=== PATIENT | female | born 1980 | race Two or more races ===

== ENCOUNTER 2016-10-25 22:15 | Inpatient (IN) | payer BC, OTHER ==
[~2016-10-25] VITALS: Ht 162.6 cm; Wt 61.3 kg
[2016-10-25] MEDS ORDERED: morphine 2 MG INJ IV STA (22:55)
[2016-10-25] MEDS ORDERED: KETOROLAC 30 MG INJ IV STA (22:55)
[2016-10-25] MEDS ORDERED: SOD CHLORIDE 0.9% 1,000 ML IV STA (22:55)
[2016-10-25] MEDS ORDERED: ACETAMINOPHEN 500 MG TAB PO STA (22:55)
[2016-10-25] MEDS ORDERED: ONDANSETRON 4 MG INJ IV STA (22:55)
--- NOTE | 2016-10-25 23:16 | ERD ---
ER Documentation Chief Complaint Date/Time DATE: 10/25/16 TIME: 23:11 Chief Complaint FEVERS WITH BILATERAL FLANK PAIN, RECENTLY DX UTI, NAUSEA HPI 36-year-old female presents in emergency department for complaints of bilateral flank pain fever nausea vomiting for one week now. Patient was diagnosed to have urinary tract infection, is currently on Keflex. Patient started to also even got worse. Patient is complaining of bilateral flank pain throbbing pain 6/ 10 scale, accompanied other symptoms. Patient denies any diarrhea. Patient denies any sick contacts. ROS All systems reviewed and are negative except as per history of present illness. Medications Home Meds Reported Medications [none] Unknown Strength No Conflict Check 10/25/16 Allergies Allergies: Coded Allergies: No Known Allergy (Unverified , 10/25/16) PMhx/Soc Medical and Surgical Hx: pt denies Medical Hx, pt denies Surgical Hx History of Surgery: No Anesthesia Reaction: No Hx Neurological Disorder: No Hx Respiratory Disorders: No Hx Cardiac Disorders: No Hx Psychiatric Problems: No Hx Miscellaneous Medical Probl: Yes (hx of chronic anemia) Hx Alcohol Use: No Hx Substance Use: No Hx Tobacco Use: No Smoking Status: Never smoker FmHx Family History: No coronary disease, No diabetes, No other Physical Exam Vitals Vital Signs Date Time Temp Pulse Resp B/P Pulse Ox O2 Delivery O2 Flow Rate FiO2 10/25/16 22:28 100.0 106 24 130/60 100 Physical Exam GENERAL: The patient is well developed and appropriate for usual state of health, in no apparent distress. CHEST: Clear to auscultation bilaterally. There are no rales, wheezes or rhonchi. HEART: Regular rate and rhythm. No murmurs, clicks, rubs or gallops. No S3 or S4. ABDOMEN: Soft, nontender and nondistended. Good bowel sounds. No rebound or guarding. No gross peritonitis. No gross organomegaly or masses. No Rodriguez sign or McBurney point tenderness. BACK: No midline or flank tenderness. EXTREMITIES: Equal pulses bilaterally. There is no peripheral clubbing, cyanosis or edema. No focal swelling or erythema. Full range of motion. Grossly neurovascularly intact. NEURO: Alert and oriented. Cranial nerves 2-12 intact. Motor strength in all 4 extremities with 5/5 strength. Sensation grossly intact. Normal speech and gait. SKIN: There is no apparent rash or petechia. The skin is warm and dry. HEMATOLOGIC AND LYMPHATIC: There is no evidence of excessive bruising or lymphedema. No gross cervical, axillary, or inguinal lymphadenopathy. Result Diagram: 10/25/16231410/25/162314 Results 24 hrs Laboratory Tests Test 10/25/16 23:03 10/25/16 23:15 Urine Color STRAW Urine Clarity CLEAR Urine pH 6.0 Urine Specific Platter 1.008 Urine Ketones NEGATIVEmg/dL Urine Nitrite NEGATIVEmg/dL Urine Bilirubin NEGATIVEmg/dL Urine Urobilinogen NEGATIVEmg/dL Urine Leukocyte Esterase 1+Adela/ul Urine Microscopic RBC 1/HPF Urine Microscopic WBC 2/HPF Urine Hemoglobin NEGATIVEmg/dL Urine Glucose NEGATIVEmg/dL Urine Total Protein NEGATIVEmg/dl White Blood Count 14.810^3/ul Red Blood Count 4.7710^6/ul Hemoglobin 7.6g/dl Hematocrit 28.0% Mean Corpuscular Volume 58.7fl Mean Corpuscular Hemoglobin 15.9pg Mean Corpuscular Hemoglobin Concent 27.1g/dl Red Cell Distribution Width 24.0% Platelet Count 97845^3/UL Mean Platelet Volume fl Neutrophils % 77.1% Lymphocytes % 13.7% Monocytes % 7.2% Eosinophils % 0.9% Basophils % 0.4% Nucleated Red Blood Cells % 0.0/100WBC Neutrophils # 11.410^3/ul Lymphocytes # 2.010^3/ul Monocytes # 1.110^3/ul Eosinophils # 0.110^3/ul Basophils # 0.110^3/ul Nucleated Red Blood Cells # 0.010^3/ul Sodium Level 143mmol/L Potassium Level 3.7mmol/L Chloride Level 100mmol/L Carbon Dioxide Level 24mmol/L Anion Gap 23 Blood Urea Nitrogen 9mg/dl Creatinine 0.62mg/dl Glucose Level 101mg/dl Calcium Level 9.0mg/dl Total Bilirubin 0.3mg/dl Direct Bilirubin 0.00mg/dl Indirect Bilirubin 0.3mg/dl Aspartate Amino Transf (AST/SGOT) 16IU/L Alanine Aminotransferase (ALT/SGPT) 24IU/L Alkaline Phosphatase 56IU/L Total Protein 8.2g/dl Albumin 4.5g/dl Globulin 3.70g/dl Albumin/Globulin Ratio 1.21 Lipase 86U/L Current Medications Medications (Trade) Dose Ordered Sig/Jocelyn Route PRN Reason Start Time Stop Time Status Last Admin Dose Admin Sodium Chloride (NS) 1,000 ml @ 1,000 mls/hr Q1H STAT IV 10/25/16 22:55 10/25/16 23:54 DC 10/25/16 23:37 Morphine Sulfate (morphine) 2 mg ONCE STAT IV 10/25/16 22:55 10/25/16 22:57 DC 10/25/16 23:37 Ondansetron HCl (Zofran Inj) 4 mg ONCE STAT IV 10/25/16 22:55 10/25/16 22:57 DC 10/25/16 23:36 Acetaminophen (Tylenol Tab) 500 mg ONCE STAT PO 10/25/16 22:55 10/25/16 22:57 DC 10/25/16 23:36 Ketorolac Tromethamine (Toradol) 30 mg ONCE STAT IV 10/25/16 22:55 10/25/16 22:57 DC 10/25/16 23:36 Patient was given medicines for fever control here in the emergency department. After treatment, patient temperature improved and lower. Patient appears well and is hemodynamically stable.Patient was given medication for pain here in emergency department, after treatment, patient verbalized feeling much better. Patient's pain is improved.Patient was given Zofran here in the emergency department. After treatment, patient was able to tolerate po fluids here in the emergency department without any vomiting. There is no signs and symptoms of dehydration. Normal saline IV bolus was given here in emergency department for rehydration, patient tolerated IV fluids. PROCEDURE: CT ABDOMEN/PELVIS WITHOUT CONTRAST CLINICAL INDICATION: 36-year-old female with abdominal pain. TECHNIQUE: The study was performed utilizing a [employer] VCT 64-slice CT scanner. Direct axial sections were obtained through the abdomen and pelvis without the use of intravenous contrast material. Sagittal and coronal reformations were obtained. One or more of the following dose reduction techniques were utilized: automated exposure control, adjustment of the mA and/ or kV according to patient's size or use of iterative reconstruction technique. The images were reviewed on a PACS workstation. CTD/vol = 5.9 mGy; Total Exam DLP = 334.3 mGy-cm. COMPARISON: None. FINDINGS: There is minimal bibasilar subsegmental atelectasis. There is mild respiratory motion artifact limiting evaluation to some extent. There is no evidence for significant pleural effusion. The liver has a normal size and contour without focal areas of abnormal density. No intrahepatic nor extrahepatic biliary ductal dilatation is seen. The gallbladder demonstrates no wall thickening nor pericholecystic fluid. No biliary stones are evident. The pancreas is without areas of abnormal attenuation. The spleen is identified and has a normal size without abnormal density. The adrenal glands are unremarkable. The kidneys are without abnormal density. No hydroureteronephrosis nor nephroureterolithiasis is evident. The urinary bladder contains urine. There is mild retained stool identified within the colon without obstruction. The appendix is visualized and is without abnormal thickening or surrounding inflammatory reaction. The uterus is anteflexed. There is trace pelvic free fluid. The aortoiliac vessels are without aneurysmal dilatation. The osseous structures are intact. IMPRESSION: 1. No CT evidence for obstructive uropathy or renal calculi. 2. Mild retained stool within the colon without obstruction. 3. No CT evidence for appendicitis. 4. Trace pelvic free fluid. .You Girard MD, MD Date Time Electronically viewed and signed by .You Girard MD, MD on 10/25/2016 23:48 .M/ CC: JENNIE ANDERSON NP Procedures/MDM Medical Decision Making: Patient's symptoms was likely is consistent with pyelonephritis, failed outpatient management and treatment, will be admitted for this. Also patient has low hemoglobin, severe anemia which is symptomatic, patient is feeling weak and dizzy,, not bleeding at this time, patient states that she has been feeling weak also. Patient has always had severe iron deficiency. I discussed this case with my attending physician, Dr. Gutierrez, patient needs to be admitted to the hospital for further management and treatment, will facilitate admission to the hospital. Departure Diagnosis: Primary Impression: Pyelonephritis Additional Impression: Symptomatic anemia Condition: Fair JENNIE ANDERSON NP Oct 25, 2016 23:16
[2016-10-25 23:43] LABS: ADD UMIC YES; UR ASCORBIC ACID NEGATIVE (NEGATIVE); UR BILIRUBIN (Dip) NEGATIVE (NEGATIVE); UR BLOOD (Dip) NEGATIVE (NEGATIVE); UR CLARITY CLEAR (CLEAR); UR COLOR STRAW (YELLOW); UR GLUCOSE (Dip) NEGATIVE (NEGATIVE); UR KETONES (Dip) NEGATIVE (NEGATIVE); UR LEUKOCYTE ESTERASE (Dip) 1+ Leu/ul (NEGATIVE); UR NITRITE (Dip) NEGATIVE (NEGATIVE); UR RBC 1 /HPF (0-5); UR SPECIFIC GRAVITY (Dip) 1.008 (1.003-1.030); UR TOTAL PROTEIN (Dip) NEGATIVE (NEGATIVE); UR UROBILINOGEN (Dip) NEGATIVE (NEGATIVE)
[2016-10-25 23:46] LABS: ABNORMAL IP MESSAGE 1; BASOPHIL # 0.1 10^3/ul (0.0-0.1); BASOPHILS % 0.4 % (0.0-2.0); EOSINOPHILS # 0.1 10^3/ul (0.0-0.5); EOSINOPHILS % 0.9 % (0.0-7.0); HEMOGLOBIN 7.6 g/dl (12.0-16.0); LYMPHOCYTES % 13.7 % (15.0-51.0); MEAN CORPUSCULAR HEMOGLOBIN 15.9 pg (29.0-33.0); MEAN CORPUSCULAR HGB CONC 27.1 g/dl (32.0-37.0); MEAN CORPUSCULAR VOLUME 58.7 fl (82.0-101.0); MONOCYTE # 1.1 10^3/ul (0.3-0.9); MONOCYTES % 7.2 % (0.0-11.0); NEUTROPHIL # 11.4 10^3/ul (1.6-7.5); NEUTROPHILS % 77.1 % (39.0-77.0); PLATELET COUNT 256 10^3/UL (140-415); RED BLOOD COUNT 4.77 10^6/ul (4.20-5.40); WHITE BLOOD COUNT 14.8 10^3/ul (4.8-10.8)
[2016-10-25 23:47] LABS: POSITIVE DIFF @See below
--- NOTE | 2016-10-25 23:48 | RADRPT ---
PROCEDURE: CT ABDOMEN/PELVIS WITHOUT CONTRAST CLINICAL INDICATION: 36-year-old female with abdominal pain. TECHNIQUE: The study was performed utilizing a [employer] VCT 64-slice CT scanner. Direct axia l sections were obtained through the abdomen and pelvis without the use of intravenous contrast mate rial. Sagittal and coronal reformations were obtained. One or more of the following dose reduction t echniques were utilized: automated exposure control, adjustment of the mA and/or kV according to pat ient's size or use of iterative reconstruction technique. The images were reviewed on a [facility]. CTD/vol = 5.9 mGy; Total Exam DLP = 334.3 mGy-cm. COMPARISON: None. FINDINGS: There is minimal bibasilar subsegmental atelectasis. There is mild respiratory motion artifact limit ing evaluation to some extent. There is no evidence for significant pleural effusion. The liver has a normal size and contour without focal areas of abnormal density. No intrahepatic nor extrahepatic biliary ductal dilatation is seen. The gallbladder demonstrates no wall thickening nor pericholecys tic fluid. No biliary stones are evident. The pancreas is without areas of abnormal attenuation. Th e spleen is identified and has a normal size without abnormal density. The adrenal glands are unrema rkable. The kidneys are without abnormal density. No hydroureteronephrosis nor nephroureterolithiasi s is evident. The urinary bladder contains urine. There is mild retained stool identified within the colon without obstruction. The appendix is visualized and is without abnormal thickening or surrou nding inflammatory reaction. The uterus is anteflexed. There is trace pelvic free fluid. The aortoiliac vessels are without aneurysmal dilatation. The osseous structures are intact. IMPRESSION: 1. No CT evidence for obstructive uropathy or renal calculi. 2. Mild retained stool within the colon without obstruction. 3. No CT evidence for appendicitis. 4. Trace pelvic free fluid. .You Girard MD, Date Time Electronically viewed and signed by .You Girard MD, MD on 10/25/2016 23:48 .Brodie
[2016-10-26] VITALS (9 sets, daily range): BP systolic 108–126; BP diastolic 57–84; PULSE 77–89; RESP 14–19; TEMP 98; Ht 162.6 cm; Wt 61.3 kg
[2016-10-26 00:07] LABS: ALBUMIN 4.5 g/dl (3.3-4.9); ALBUMIN/GLOBULIN RATIO 1.21; BILIRUBIN,INDIRECT 0.3 mg/dl (0-1.1); BILIRUBIN,TOTAL 0.3 mg/dl (0.2-1.3); CREATININE 0.62 mg/dl (0.44-1.00); POTASSIUM 3.7 mmol/L (3.5-5.1); TOTAL PROTEIN 8.2 g/dl (6.1-8.1)
--- NOTE | 2016-10-26 01:20 | EN ---
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
[2016-10-26] MEDS ORDERED: CEPH500C PO (02:04)
[2016-10-26] MEDS ORDERED: CHOL100062 PO (02:04)
[2016-10-26] MEDS ORDERED: FER325 PO (02:04)
[2016-10-26] MEDS ORDERED: OMEP20CA16 PO (02:04)
[2016-10-26] MEDS ORDERED: MONT10TA24 PO (02:04)
[2016-10-26] MEDS ORDERED: ACETAMINOPHEN 325 MG TAB PO PRN (04:30)
[2016-10-26] MEDS ORDERED: ONDANSETRON 4 MG INJ IV PRN (04:30)
[2016-10-26] MEDS: SOD CHLORIDE 0.9% 1,000 ML IV SCH ×3 (04:39→23:33)
[2016-10-26] MEDS: morphine 4 MG/ML VIAL IV PRN ×2 (04:43→21:57)
[2016-10-26 06:41] LABS: ABNORMAL IP MESSAGE 1; HEMATOCRIT 24.8 % (37.0-47.0); MEAN CORPUSCULAR HEMOGLOBIN 15.5 pg (29.0-33.0); MEAN CORPUSCULAR HGB CONC 26.2 g/dl (32.0-37.0); MEAN CORPUSCULAR VOLUME 59.2 fl (82.0-101.0); PLATELET COUNT 206 10^3/UL (140-415); RED BLOOD COUNT 4.19 10^6/ul (4.20-5.40); RED CELL DISTRIBUTION WIDTH 24.3 % (11.5-14.5); WHITE BLOOD COUNT 10.5 10^3/ul (4.8-10.8)
[2016-10-26 06:47] LABS: POSITIVE DIFF @See below
[2016-10-26 06:49] LABS: HEMOGLOBIN 6.5 g/dl (12.0-16.0)
[2016-10-26 07:15] LABS: CREATININE 0.64 mg/dl (0.44-1.00); MAGNESIUM 2.1 mg/dl (1.7-2.5); PHOSPHORUS 3.8 mg/dl (2.5-4.9); POTASSIUM 3.8 mmol/L (3.5-5.1)
--- NOTE | 2016-10-26 07:48 | HP ---
Date/Time of Note Date/Time of Note DATE: 10/26/16 TIME: 07:39 Assessment/Plan VTE Prophylaxis VTE Prophylaxis Intervention: SCD's Lines/Catheters IV Catheter Type (from [facility]): Peripheral IV Urinary Cath still in place: No Assessment/Plan Assessment/Plan 1. likely pyelonephritis -Patient presenting flank pain and recently diagnosed a UTI is highly suggestive of pyelonephritis. Her urinalysis however only shows 1+ leukocyte esterase with normal WBC and a CT scan is nondiagnostic for pyelonephritis. She will however be placed on IV antibiotic. Will follow up on urine culture results. Will provide pain medication as needed. 2. Microcytic anemia: Patient was history of iron deficiency anemia -Since since I saw the patient, her hemoglobin further dropped to 6.5 from [address] GI consult. Will order pelvic/vaginal ultrasound to evaluate for fibroid. Will check ferritin/iron. She will most likely need to be on IV iron but will await the results. 3. History of asthma: No sign of acute exacerbation 4. Leukocytosis: Likely secondary to pyelonephritis -See #1 HPI/ROS Admit Date/Time Admit Date/Time Oct 26, 2016 at 01:13 Hx of Present Illness This is a 36-year-old female with a history of asthma and iron deficiency anemia who presented to the emergency department complaining of bilateral flank pain. About a week ago she was diagnosed with UTI and has been prescribed cephalexin. She said after she started taking the antibiotic the pain actually has gotten much worse. She also reported subjective fever and nausea but no vomiting. Denied chest pain or shortness of breath. When she presented to the ER she had a temperature of 100. WBC was 15,000. Hemoglobin 7.6 with MCV of 58. CT abdomen pelvis shows mild retained stool otherwise no obstructive uropathy or any other acute findings. Urinalysis shows 1+ leukocyte esterase. PMH/Family/Social Social History Smoking Status: Never smoker Exam/Review of Systems Vital Signs Vitals Vital Signs Date Time Temp Pulse Resp B/P Pulse Ox O2 Delivery O2 Flow Rate FiO2 10/26/16 03:50 98.0 89 18 125/68 98 Room Air Intake and Output 10/25/16 10/25/16 10/26/16 15:00 23:00 07:00 Intake Total 600 ml Output Total 600 ml Balance 0 ml Exam Constitutional: alert, oriented, well developed Head: atraumatic, normocephalic Eyes: EOMI, PERRL Respiratory: clear to auscultation, normal air movement Cardiovascular: nl pulses, regular rate and rhythm Gastrointestinal: other (Flank tenderness), soft Extremities: normal pulses Labs Result Diagram: 10/26/1661010/26/16610 Medications Medications Current Medications Enoxaparin Sodium (Lovenox) 40 mg DAILY SC ; Start 10/26/16 at 09:00 Ondansetron HCl (Zofran Inj) 4 mg Q6H PRN IV NAUSEA AND/OR VOMITING; Start 10/26 at 04:30 Morphine Sulfate 3 mg 3 mg Q4H PRN IV PAIN Last administered on 10/26/16 04:43 ; Admin Dose 3 MG; Start 10/26/16 at 04:30 Cefepime HCl (Maxipime 1gm/50 ml (Pmx)) 50 ml @ 100 mls/hr Q12 IVPB ; Start 10/26/16 at 09:00 Acetaminophen 650 mg 650 mg Q6H PRN PO PAIN AND OR ELEVATED TEMP; Start at 04:30 Sodium Chloride (NS) 1,000 ml @ 100 mls/hr Q10H IV Last administered on 04:39; Admin Dose 100 MLS/HR; Start 10/26/16 at 04:45; Stop 10/27/16 at 04:45 Cholecalciferol (Vitamin D) 5,000 unit DAILY PO ; Start 10/26/16 at 09:00 Ferrous Sulfate (Ferrous Sulfate (Ec)) 325 mg DAILY PO ; Start 10/26/16 at 09:00 Montelukast Sodium (Singulair) 10 mg QHS PO ; Start 10/26/16 at 21:00 JENNI SHARMA MD Oct 26, 2016 07:48
[2016-10-26] MEDS: FERROUS SULFATE (EC) 325 MG TAB PO SCH ×3 (08:44→21:20)
[2016-10-26] MEDS: CHOLECALCIFEROL 1,000 UNIT TAB PO SCH (08:44)
[2016-10-26] MEDS: CEFEPIME 1GM/50 ML (PMX) 50 ML IVPB SCH ×2 (08:44→21:20)
--- NOTE | 2016-10-26 08:56 | RADRPT ---
PROCEDURE: US Pelvis. CLINICAL INDICATION: Anemia. Evaluate fibroids. TECHNIQUE: Multiple sonographic images of the pelvis were obtained utilizing a transabdominal and endovaginal technique. The images were reviewed on a PACS workstation. COMPARISON: CT abdomen pelvis from 10/25/2016. FINDINGS: The uterus is visualized and measures 9.1 x 5.3 x 6.2 cm. The endometrial echo complex is mildly pro minent and measures 16.9 mm. There are multiple fibroids. The largest measures 3.0 x 2.4 x 3.0 cm i n the posterior body of the uterus. There is trace free fluid in the cul-de-sac.. The right ovary h as a normal echotexture and measures 3.4 x 2.3 x 2.8 cm. The left ovary has a normal echotexture an d measures 4.0 x 1.4 x 2.2 cm. There are follicles in both ovaries. There is normal Doppler flow bi laterally. No adnexal masses are noted. IMPRESSION: 1. Heterogeneous appearance of the uterus with multiple fibroids. The largest is in the posterior b eric measuring 3.0 x 2.4 x 3.0 cm. 2. Mildly prominent endometrial canal complex. This could be due to the phase of the menstrual cyc le. 3. Ovaries and adnexa appear unremarkable bilaterally. RPTAT: [facility] Physician Toño Date Time Electronically viewed and signed by Physician Tooñ on 10/26/2016 08:56 /
[2016-10-26] MEDS ORDERED: ENOXAPARIN 40 MG/0.4 ML SYG SC SCH (09:00)
[2016-10-26] MEDS ORDERED: FERROUS SULFATE (EC) 325 MG TAB PO SCH (09:00)
[2016-10-26 10:09] LABS: ANISOCYTOSIS 3+ (0-0); EOSINOPHILS % (M) 3 % (0-7); ERYTHROBLAST% (NRBC) (M) 1 % (0-0); GIANT THROMBO% (M) 2 % (0-0); HYPOCHROMASIA 3+ (0-0); MICROCYTOSIS 3+ (0-0); MONOCYTES % (M) 4 % (0-11); OVALOCYTES 1+ (0-0); PLATELET ESTIMATE NORMAL; POIKILOCYTOSIS 2+ (0-0); POLYCHROMASIA 3+ (0-0)
[2016-10-26 12:18] LABS: IRON 10 ug/dl (35-150)
[2016-10-26 12:27] LABS: TOTAL IRON BINDING CAPACITY 326 ug/dl (241-421)
[2016-10-26] MEDS ORDERED: SOD FERRIC GLUC COMPLX 125 MG in SOD CHLORIDE 0.9% 100 ML IVPB SCH (20:00)
[2016-10-26] MEDS: MONTELUKAST 10 MG TAB PO SCH (21:20)
--- NOTE | 2016-10-27 01:05 | CONS ---
Date/Time of Note Date/Time of Note DATE: 10/27/16 TIME: 00:49 Assessment/Plan Assessment/Plan Chief Complaint/Hosp Course Severe microcytic anemia, possible iron deficiency anemia, cannot rule out thalassemia or other microcytic anemia patient denies any menorrhagia or abnormal uterine bleeding Cannot rule out GI source versus low intake Small fibroids. Asymptomatic. Incidental finding of vaginal yeast infection, wet mount was sent. We will treat with vaginal azole Discussed with the patient needs complete workup for anemia, including GI evaluation Patient reports regular cycles denies any menorrhagia or intermenstrual bleeding , Recommended the patient to be on OCPs versus Depo-Provera for menstrual suppression with iron supplementation in order to improve iron stores Meantime recommended to be evaluated by hematology for workup of anemia as well as GI. Likely need to have fecal stool for blood versus colonoscopy Pelvic ultrasound showed only 2 small fibroid, nonsignificant I discussed with the patient regarding continuous OCP while being worked up for anemia She continues to be on Depo-Provera shot after she discharged from the hospital in the [facility] office and for follow-up Advised to take iron twice a day with stool softener to improve iron store\ With follow-up while in-house Problems: Consultation Date/Type/Reason Admit Date/Time Oct 26, 2016 at 01:13 Type of Consultation: SUPERVISOR YARD consultation Reason for Consultation Severe anemia, fibroid uterus. Rule out SUPERVISOR YARD causes for anemia Hx of Present Illness I was consulted by hospitalist to see if this 36-year-old pleasant female who presented to emergency room with complaint of low back pain and nausea as well as fatigue for the last couple of days. Patient was noted to be severely anemic. Per patient she presented to her primary care physician about 2-3 days ago with complaint of low back pain and nausea and fatigue. She was diagnosed with UTI and severe anemia. She was given cephalexin for treatment of UTI patient reports her low back pain worsen after she started antibiotics. Patient reports low-grade fever as well as some chills. Her reported home temperature was 100. Denies any history of menorrhagia or intermenstrual bleeding or irregular menstrual bleeding. Denies any rectal rise to or black tarry dark stools or pencil thin stool. Reports low meat intake per patient's daughter has been diagnosed with anemia since years ago. Her hemoglobin used to be 9. Patient reports regular cycles every 30 days last about 7 days. The first 3 days are normal flow and then scant flow for 4 more days. Denies any postcoital bleeding or intermenstrual bleeding Ultrasound showed 2 small fibroids with normal bilateral ovaries. Denies any family history of blood problems or thalassemia. Subjective hx not possible: other (Cooperative) Constitutional: other (Low back pain, suprapubic pain) Eyes: no complaints ENT: no complaints Respiratory: no complaints Cardiovascular: no complaints Gastrointestinal: no complaints Genitourinary: no complaints, other (Reports some thick vaginal discharge) Musculoskeletal: no complaints Skin: other (Pale skin) Neurologic: no complaints Endocrine: no complaints Lymphatic: no complaints Psychological: no complaints Immunologic: no complaints Past Medical History [facility] history: 3 SAB x 1 Denies ever having pap smear in the past. Cycles are regular every 30 days last about 7 days. The first 3 days are regular flow and the last 4 days are scant. 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 Arrived to [place] 7 months ago Exam/Review of Systems Vital Signs Vitals Vital Signs Date Time Temp Pulse Resp B/P Pulse Ox O2 Delivery O2 Flow Rate FiO2 10/26/16 21:15 98.0 77 19 122/84 98 Room Air Intake and Output 10/26/16 10/26/16 10/27/16 15:00 23:00 07:00 Intake Total 50 ml 2100 ml Output Total 2000 ml Balance 50 ml 100 ml Exam Constitutional: alert, oriented, well developed Psych: nl mood/affect, no complaints Head: atraumatic, normocephalic Eyes: EOMI, nl conjunctiva, nl lids ENMT: nl external ears & nose, nl lips & teeth, nl nasal mucosa & septum Neck: non-tender, supple Respiratory: clear to auscultation, normal air movement Cardiovascular: nl pulses, regular rate and rhythm Gastrointestinal: nl liver, spleen, other (Suprapubic tenderness, no rebound tenderness, no rigidity no guarding no evidence of acute abdomen), soft, tender Genitourinary - Female: nl adnexae, nl external genitalia (Speculum examination : Brian cheesy white thick vaginal discharge consistent with Amada noted. No cervical motion tenderness: No tenderness or fullness in adnexa. 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, nl mental status Results Result Diagram: 10/26/16 0611 10/26/16 0611 Results 24 hrs Laboratory Tests Test 10/26/16 06:11 White Blood Count 10.5 # Red Blood Count 4.19 L Hemoglobin 6.5 *L Hematocrit 24.8 L Mean Corpuscular Volume 59.2 L Mean Corpuscular Hemoglobin 15.5 L Mean Corpuscular Hemoglobin Concent 26.2 L Red Cell Distribution Width 24.3 H Platelet Count 206 Mean Platelet Volume Neutrophils % Segmented Neutrophils % (Manual) 63 Lymphocytes % Lymphocytes % (Manual) 30 Monocytes % Monocytes % (Manual) 4 Eosinophils % Eosinophils % (Manual) 3 Basophils % Nucleated Red Blood Cells % 1 H Neutrophils # Absolute Lymphocytes (Manual) 3.1 H Lymphocytes # Monocytes # Absolute Monocytes (Manual) 0.4 Eosinophils # Basophils # Nucleated Red Blood Cells # Smudge Cells % 2 H Thrombocytosis 2 H Platelet Estimate NORMAL Polychromasia 3+ Hypochromasia 3+ Poikilocytosis 2+ Anisocytosis 3+ Microcytosis 3+ Ovalocytes 1+ Sodium Level 144 Potassium Level 3.8 Chloride Level 108 Carbon Dioxide Level 22 Anion Gap 18 H Blood Urea Nitrogen 9 Creatinine 0.64 Glucose Level 97 Calcium Level 8.0 L Phosphorus Level 3.8 Magnesium Level 2.1 Iron Level 10 L Total Iron Binding Capacity 326 Percent Iron Saturation 3 L Ferritin 5.7 L Medications Medications Current Medications Ondansetron HCl (Zofran Inj) 4 mg Q6H PRN IV NAUSEA AND/OR VOMITING; Start 10/26 at 04:30 Morphine Sulfate 3 mg 3 mg Q4H PRN IV PAIN Last administered on 10/26/16 21:57 ; Admin Dose 3 MG; Start 10/26/16 at 04:30 Cefepime HCl (Maxipime 1gm/50 ml (Pmx)) 50 ml @ 100 mls/hr Q12 IVPB Last administered on 10/26/16 21:20; Admin Dose 100 MLS/HR; Start 10/26/16 at 09:00 Acetaminophen 650 mg 650 mg Q6H PRN PO PAIN AND OR ELEVATED TEMP Last administered on 10/26/16 12:00; Admin Dose 650 MG; Start 10/26/16 at 04:30 Sodium Chloride (NS) 1,000 ml @ 100 mls/hr Q10H IV Last administered on 23:33; Admin Dose 100 MLS/HR; Start 10/26/16 at 04:45; Stop 10/27/16 at 04:45 Cholecalciferol (Vitamin D) 5,000 unit DAILY PO Last administered on 10/26/16 08:44; Admin Dose 5,000 UNIT; Start 10/26/16 at 09:00 Montelukast Sodium (Singulair) 10 mg QHS PO Last administered on 10/26/16 21:20 ; Admin Dose 10 MG; Start 10/26/16 at 21:00 Ferrous Sulfate (Ferrous Sulfate (Ec)) 325 mg TID PO Last administered on 21:20; Admin Dose 325 MG; Start 10/26/16 at 09:00 Procedures Procedures PROCEDURE: US Pelvis. CLINICAL INDICATION: Anemia. Evaluate fibroids. TECHNIQUE: Multiple sonographic images of the pelvis were obtained utilizing a transabdominal and endovaginal technique. The images were reviewed on a PACS workstation. COMPARISON: CT abdomen pelvis from 10/25/2016. FINDINGS: The uterus is visualized and measures 9.1 x 5.3 x 6.2 cm. The endometrial echo complex is mildly prominent and measures 16.9 mm. There are multiple fibroids. The largest measures 3.0 x 2.4 x 3.0 cm in the posterior body of the uterus. There is trace free fluid in the cul-de-sac.. The right ovary has a normal echotexture and measures 3.4 x 2.3 x 2.8 cm. The left ovary has a normal echotexture and measures 4.0 x 1.4 x 2.2 cm. There are follicles in both ovaries. There is normal Doppler flow bilaterally. No adnexal masses are noted. IMPRESSION: 1. Heterogeneous appearance of the uterus with multiple fibroids. The largest is in the posterior body measuring 3.0 x 2.4 x 3.0 cm. 2. Mildly prominent endometrial canal complex. This could be due to the phase of the menstrual cycle. 3. Ovaries and adnexa appear unremarkable bilaterally. RPTAT: [facility] PROCEDURE: CT ABDOMEN/PELVIS WITHOUT CONTRAST CLINICAL INDICATION: 36-year-old female with abdominal pain. TECHNIQUE: The study was performed utilizing a [employer] VCT 64-slice CT scanner. Direct axial sections were obtained through the abdomen and pelvis without the use of intravenous contrast material. Sagittal and coronal reformations were obtained. One or more of the following dose reduction techniques were utilized: automated exposure control, adjustment of the mA and/ or kV according to patient's size or use of iterative reconstruction technique. The images were reviewed on a PACS workstation. CTD/vol = 5.9 mGy; Total Exam DLP = 334.3 mGy-cm. COMPARISON: None. FINDINGS: There is minimal bibasilar subsegmental atelectasis. There is mild respiratory motion artifact limiting evaluation to some extent. There is no evidence for significant pleural effusion. The liver has a normal size and contour without focal areas of abnormal density. No intrahepatic nor extrahepatic biliary ductal dilatation is seen. The gallbladder demonstrates no wall thickening nor pericholecystic fluid. No biliary stones are evident. The pancreas is without areas of abnormal attenuation. The spleen is identified and has a normal size without abnormal density. The adrenal glands are unremarkable. The kidneys are without abnormal density. No hydroureteronephrosis nor nephroureterolithiasis is evident. The urinary bladder contains urine. There is mild retained stool identified within the colon without obstruction. The appendix is visualized and is without abnormal thickening or surrounding inflammatory reaction. The uterus is anteflexed. There is trace pelvic free fluid. The aortoiliac vessels are without aneurysmal dilatation. The osseous structures are intact. IMPRESSION: 1. No CT evidence for obstructive uropathy or renal calculi. 2. Mild retained stool within the colon without obstruction. 3. No CT evidence for appendicitis. 4. Trace pelvic free fluid. AMANDA OVIEDO MD Oct 27, 2016 01:04
[2016-10-27] MEDS ORDERED: CLOTRIMAZOLE 1% 45 GM VAG CR VAG ONE (01:30)
[2016-10-27 03:10] VITALS: BP 122/77; RESP 18
[2016-10-27 05:34] LABS: RETICULOCYTE COUNT % 2.6 % (0.5-1.5)
[2016-10-27 05:38] LABS: ABNORMAL IP MESSAGE 1; BASOPHIL # 0.1 10^3/ul (0.0-0.1); BASOPHILS % 0.8 % (0.0-2.0); EOSINOPHILS # 0.4 10^3/ul (0.0-0.5); EOSINOPHILS % 4.3 % (0.0-7.0); HEMATOCRIT 31.5 % (37.0-47.0); LYMPHOCYTES # 2.5 10^3/ul (0.8-2.9); LYMPHOCYTES % 29.5 % (15.0-51.0); MEAN CORPUSCULAR HEMOGLOBIN 18.9 pg (29.0-33.0); MEAN CORPUSCULAR HGB CONC 28.6 g/dl (32.0-37.0); MONOCYTE # 0.8 10^3/ul (0.3-0.9); NEUTROPHIL # 4.6 10^3/ul (1.6-7.5); NEUTROPHILS % 54.5 % (39.0-77.0); PLATELET COUNT 215 10^3/UL (140-415); RED BLOOD COUNT 4.77 10^6/ul (4.20-5.40); RED CELL DISTRIBUTION WIDTH 30.7 % (11.5-14.5); WHITE BLOOD COUNT 8.4 10^3/ul (4.8-10.8)
[2016-10-27 05:48] LABS: POSITIVE DIFF @See below
[2016-10-27 06:18] LABS: CREATININE 0.65 mg/dl (0.44-1.00); POTASSIUM 3.7 mmol/L (3.5-5.1)
[2016-10-27 08:00] VITALS: BP 116/73; RESP 18
[2016-10-27] MEDS: FERROUS SULFATE (EC) 325 MG TAB PO SCH ×3 (08:27→21:18)
[2016-10-27] MEDS: CEFEPIME 1GM/50 ML (PMX) 50 ML IVPB SCH ×2 (08:27→21:18)
[2016-10-27] MEDS: CHOLECALCIFEROL 1,000 UNIT TAB PO SCH (08:28)
--- NOTE | 2016-10-27 10:35 | CONS ---
Date/Time of Note Date/Time of Note DATE: 10/27/16 TIME: 10:28 Assessment/Plan Assessment/Plan Chief Complaint/Hosp Course Microcytic anemia with increased RDW in Patient with history of iron deficiency anemia her hemoglobin further dropped to 6.5 from 7.6 on admission. POST PRBC X 2 U pelvic/vaginal ultrasound - Heterogeneous appearance of the uterus with multiple fibroids. The largest is in the posterior body measuring 3.0 x 2.4 x 3.0 cm. ferritin/iron. - VERY LOW START IV IRON COMPLETE ANEMIA W-UP MONITOR BLOOD COUNT CLOSELY PRBC NEEDED OBSERVE FOR BLEEDING AND HEMOLYSIS OBGYN EVAL R/O GIB- GI EVAL- R/O upper GI bleed vs lower GI bleed vs others Leukocytosis: Likely secondary to pyelonephritis likely pyelonephritis Patient presenting flank pain and recently diagnosed a UTI is highly suggestive of pyelonephritis. Her urinalysis however only shows 1+ leukocyte esterase with normal WBC and a CT scan is nondiagnostic for pyelonephritis. She will however be placed on IV antibiotic. Will follow up on urine culture results. Will provide pain medication as needed. History of asthma: No sign of acute exacerbation Problems: Consultation Date/Type/Reason Admit Date/Time Oct 26, 2016 at 01:13 Date of Consultation: Oct 27, 2016 Type of Consultation: hemeonc Reason for Consultation anemia Referring Provider: BARBRA ROBERTS of Present Illness 36-year-old female presents in emergency department for complaints of bilateral flank pain fever nausea vomiting for one week now. Patient was diagnosed to have urinary tract infection, is currently on Keflex. Patient started to also even got worse. Patient is complaining of bilateral flank pain throbbing pain 6/ 10 scale, accompanied other symptoms. Patient denies any diarrhea. Patient denies any sick contacts.her medical w-up and treatment are in progress I was asked to provide hemeonc consult re anemia ROS All systems reviewed and are negative except as per history of present illness. Medications Home Meds Reported Medications [none] Unknown Strength No Conflict Check 10/25/16 Allergies Allergies: Coded Allergies: No Known Allergy (Unverified , 10/25/16) PMhx/Soc Medical and Surgical Hx: pt denies Medical Hx, pt denies Surgical Hx History of Surgery: No Anesthesia Reaction: No Hx Neurological Disorder: No Hx Respiratory Disorders: No Hx Cardiac Disorders: No Hx Psychiatric Problems: No Hx Miscellaneous Medical Probl: Yes (hx of chronic anemia) Hx Alcohol Use: No Hx Substance Use: No Hx Tobacco Use: No Smoking Status: Never smoker FmHx Family History: No coronary disease, No diabetes, No other Constitutional: other (Low back pain, suprapubic pain) Eyes: no complaints ENT: no complaints Respiratory: no complaints Cardiovascular: no complaints Gastrointestinal: no complaints Genitourinary: no complaints, other (Reports some thick vaginal discharge) Musculoskeletal: no complaints Skin: other (Pale skin) Neurologic: no complaints Endocrine: no complaints Lymphatic: no complaints Psychological: nl mood/affect, no complaints Immunologic: no complaints Past Medical History Medical History: other (GERD, chronic anemia) Social History Alcohol Use: none Smoking Status: Unknown if ever smoked Drug Use: none Exam/Review of Systems Vital Signs Vitals Vital Signs Date Time Temp Pulse Resp B/P Pulse Ox O2 Delivery O2 Flow Rate FiO2 10/27/16 08:00 98.1 78 18 116/73 100 10/26/16 21:15 Room Air Intake and Output 10/26/16 10/26/16 10/27/16 15:00 23:00 07:00 Intake Total 50 ml 2500 ml 1410 ml Output Total 2000 ml 2000 ml Balance 50 ml 500 ml -590 ml Exam Physical Exam GENERAL: The patient is well developed and appropriate for usual state of health, in no apparent distress. CHEST: Clear to auscultation bilaterally. There are no rales, wheezes or rhonchi. HEART: Regular rate and rhythm. No murmurs, clicks, rubs or gallops. No S3 or S4. ABDOMEN: Soft, nontender and nondistended. Good bowel sounds. No rebound or guarding. No gross peritonitis. No gross organomegaly or masses. No Rodriguez sign or McBurney point tenderness. BACK: No midline or flank tenderness. EXTREMITIES: Equal pulses bilaterally. There is no peripheral clubbing, cyanosis or edema. No focal swelling or erythema. Full range of motion. Grossly neurovascularly intact. NEURO: Alert and oriented. Cranial nerves 2-12 intact. Motor strength in all 4 extremities with 5/5 strength. Sensation grossly intact. Normal speech and gait. SKIN: There is no apparent rash or petechia. The skin is warm and dry. HEMATOLOGIC AND LYMPHATIC: There is no evidence of excessive bruising or lymphedema. No gross cervical, axillary, or inguinal lymphadenopathy. Results Result Diagram: 10/27/16 0424 10/27/16 0455 Results 24 hrs Laboratory Tests Test 10/27/16 04:24 10/27/16 04:37 10/27/16 04:55 10/27/16 07:12 White Blood Count 8.4 Red Blood Count 4.77 Hemoglobin 9.0 #L Hematocrit 31.5 #L Mean Corpuscular Volume 66.0 L Mean Corpuscular Hemoglobin 18.9 #L Mean Corpuscular Hemoglobin Concent 28.6 L Red Cell Distribution Width 30.7 #H Platelet Count 215 Mean Platelet Volume Neutrophils % 54.5 Lymphocytes % 29.5 Monocytes % 10.0 Eosinophils % 4.3 Basophils % 0.8 Nucleated Red Blood Cells % 0.0 Neutrophils # 4.6 Lymphocytes # 2.5 Monocytes # 0.8 Eosinophils # 0.4 Basophils # 0.1 Nucleated Red Blood Cells # 0.0 Absolute Reticulocyte Count 0.121 H Percent Reticulocyte Count 2.6 H Sodium Level 142 Potassium Level 3.7 Chloride Level 107 Carbon Dioxide Level 23 Anion Gap 16 Blood Urea Nitrogen 7 Creatinine 0.65 Glucose Level 86 Calcium Level 8.0 L Lactate Dehydrogenase 412 Thyroid Stimulating Hormone (TSH) 2.150 Lab Scanned Report BLOOD TRANSFUSION Medications Medications Current Medications Ondansetron HCl (Zofran Inj) 4 mg Q6H PRN IV NAUSEA AND/OR VOMITING; Start 10/26 at 04:30 Morphine Sulfate 3 mg 3 mg Q4H PRN IV PAIN Last administered on 10/26/16 21:57 ; Admin Dose 3 MG; Start 10/26/16 at 04:30 Cefepime HCl (Maxipime 1gm/50 ml (Pmx)) 50 ml @ 100 mls/hr Q12 IVPB Last administered on 10/27/16 08:27; Admin Dose 100 MLS/HR; Start 10/26/16 at 09:00 Acetaminophen (Tylenol Tab) 650 mg Q6H PRN PO PAIN AND OR ELEVATED TEMP Last administered on 10/26/16 12:00; Admin Dose 650 MG; Start 10/26/16 at 04:30 Cholecalciferol (Vitamin D) 5,000 unit DAILY PO Last administered on 10/27/16 08:28; Admin Dose 5,000 UNIT; Start 10/26/16 at 09:00 Montelukast Sodium (Singulair) 10 mg QHS PO Last administered on 10/26/16 21:20 ; Admin Dose 10 MG; Start 10/26/16 at 21:00 Ferrous Sulfate 325 mg 325 mg TID PO Last administered on 10/27/16 08:27; Admin Dose 325 MG; Start 10/26/16 at 09:00 Ferric Sodium Gluconate Complex/ Sodium Chloride (Ferrlecit/NS) 110 ml @ 100 mls/hr ONCE ONCE IVPB ; Start 10/27/16 at 11:00; Stop 10/27/16 at 12:05 Procedures Procedures [place] [address] Radiology Main Line: [phone] DIAGNOSTIC IMAGING REPORT Patient: BRITTANY RITCHIE : 1980 Age: 36 Sex: F MR #: [id number] DOS: 10/26/16 0000 Ordering MD: JENNI SHARMA [place] [facility] [place] [facility] PROCEDURE: US Pelvis. CLINICAL INDICATION: Anemia. Evaluate fibroids. TECHNIQUE: Multiple sonographic images of the pelvis were obtained utilizing a transabdominal and endovaginal technique. The images were reviewed on a PACS workstation. COMPARISON: CT abdomen pelvis from 10/25/2016. FINDINGS: The uterus is visualized and measures 9.1 x 5.3 x 6.2 cm. The endometrial echo complex is mildly prominent and measures 16.9 mm. There are multiple fibroids. The largest measures 3.0 x 2.4 x 3.0 cm in the posterior body of the uterus. There is trace free fluid in the cul-de-sac.. The right ovary has a normal echotexture and measures 3.4 x 2.3 x 2.8 cm. The left ovary has a normal echotexture and measures 4.0 x 1.4 x 2.2 cm. There are follicles in both ovaries. There is normal Doppler flow bilaterally. No adnexal masses are noted. IMPRESSION: 1. Heterogeneous appearance of the uterus with multiple fibroids. The largest is in the posterior body measuring 3.0 x 2.4 x 3.0 cm. 2. Mildly prominent endometrial canal complex. This could be due to the phase of the menstrual cycle. 3. Ovaries and adnexa appear unremarkable bilaterally. RPTAT: [facility] Ranjeet Burton Physician Date Time Electronically viewed and signed by Ranjeet Burton Physician on 10/26/2016 08: 56 JH/ CC: JENNI SHARMA MD [place] [address] Radiology Main Line: [phone] DIAGNOSTIC IMAGING REPORT Patient: BRITTANY RITCHIE : 1980 Age: 36 Sex: F MR #: [id number] DOS: 10/25/16 2255 Ordering MD: JENNIE ANDERSON NP Location: [facility] Room/Bed: PROCEDURE: CT ABDOMEN/PELVIS WITHOUT CONTRAST CLINICAL INDICATION: 36-year-old female with abdominal pain. TECHNIQUE: The study was performed utilizing a [employer] VCT 64-slice CT scanner. Direct axial sections were obtained through the abdomen and pelvis without the use of intravenous contrast material. Sagittal and coronal reformations were obtained. One or more of the following dose reduction techniques were utilized: automated exposure control, adjustment of the mA and/ or kV according to patient's size or use of iterative reconstruction technique. The images were reviewed on a PACS workstation. CTD/vol = 5.9 mGy; Total Exam DLP = 334.3 mGy-cm. COMPARISON: None. FINDINGS: There is minimal bibasilar subsegmental atelectasis. There is mild respiratory motion artifact limiting evaluation to some extent. There is no evidence for significant pleural effusion. The liver has a normal size and contour without focal areas of abnormal density. No intrahepatic nor extrahepatic biliary ductal dilatation is seen. The gallbladder demonstrates no wall thickening nor pericholecystic fluid. No biliary stones are evident. The pancreas is without areas of abnormal attenuation. The spleen is identified and has a normal size without abnormal density. The adrenal glands are unremarkable. The kidneys are without abnormal density. No hydroureteronephrosis nor nephroureterolithiasis is evident. The urinary bladder contains urine. There is mild retained stool identified within the colon without obstruction. The appendix is visualized and is without abnormal thickening or surrounding inflammatory reaction. The uterus is anteflexed. There is trace pelvic free fluid. The aortoiliac vessels are without aneurysmal dilatation. The osseous structures are intact. IMPRESSION: 1. No CT evidence for obstructive uropathy or renal calculi. 2. Mild retained stool within the colon without obstruction. 3. No CT evidence for appendicitis. 4. Trace pelvic free fluid. .You Girard MD, MD Date Time Electronically viewed and signed by .You Girard MD, MD on 10/25/2016 23:48 .M/ CC: JENNIE ANDERSON NP, VERA M MD Oct 27, 2016 10:35
[2016-10-27 10:39] LABS: ANISOCYTOSIS 3+ (0-0); BASOPHILS % (M) 3 % (0-2); EOSINOPHILS % (M) 1 % (0-7); HYPOCHROMASIA 2+ (0-0); MICROCYTOSIS 3+ (0-0); MONOCYTES % (M) 4 % (0-11); PLATELET ESTIMATE NORMAL; POIKILOCYTOSIS 2+ (0-0); POLYCHROMASIA 3+ (0-0)
[2016-10-27] MEDS ORDERED: SOD FERRIC GLUC COMPLX 125 MG in SOD CHLORIDE 0.9% 100 ML IVPB ONE (11:00)
[2016-10-27 13:16] LABS: CANCER ANTIGEN 125 6.4 U/ml (0.0-35.0)
[2016-10-27 13:17] LABS: CARCINOEMBRYONIC ANTIGEN < 0.3 ng/ml (0.0-5.0)
[2016-10-27 14:00] VITALS: BP 119/80; RESP 19
--- NOTE | 2016-10-27 14:30 | PN ---
Date/Time of Note Date/Time of Note DATE: 10/27/16 TIME: 14:21 Assessment/Plan VTE Prophylaxis VTE Prophylaxis Intervention: SCD's Lines/Catheters IV Catheter Type (from Nrs): Peripheral IV Urinary Cath still in place: No Assessment/Plan Chief Complaint/Hosp Course 1. Microcytic anemia 2/2 Iron deficiency -Anemia w/u, [place] [facility] consult appreciated, no reported Hx of sig vaginal bleed, no reports of melena but have obtained a GI consult, Hem consult appreciated -s/p 2 units of PRBC's,cont Ferrlecit 2. Flank pain- no e/p of Pyelo, likely MS in nature -UA ans UCx neg, DC Abx -CT Abd/pelvis shows no sig findings 3. Leukocytosis-resolved PPX: SCD's Problems: Subjective 24 Hr Interval Summary Musculoskeletal: back pain Exam/Review of Systems Vital Signs Vitals Vital Signs Date Time Temp Pulse Resp B/P Pulse Ox O2 Delivery O2 Flow Rate FiO2 10/27/16 08:00 98.1 78 18 116/73 100 10/26/16 21:15 Room Air Intake and Output 10/26/16 10/26/16 10/27/16 15:00 23:00 07:00 Intake Total 50 ml 2500 ml 1410 ml Output Total 2000 ml 2000 ml Balance 50 ml 500 ml -590 ml Exam Constitutional: alert Respiratory: clear to auscultation Cardiovascular: regular rate and rhythm Gastrointestinal: soft, No distended Musculoskeletal: nl extremities to inspection Results Result Diagram: 10/27/16 0424 10/27/16 0455 Results 24 hrs Laboratory Tests Test 10/27/16 04:24 10/27/16 04:37 10/27/16 04:53 10/27/16 04:55 White Blood Count 8.4 Red Blood Count 4.77 Hemoglobin 9.0 #L Hematocrit 31.5 #L Mean Corpuscular Volume 66.0 L Mean Corpuscular Hemoglobin 18.9 #L Mean Corpuscular Hemoglobin Concent 28.6 L Red Cell Distribution Width 30.7 #H Platelet Count 215 Mean Platelet Volume Neutrophils % 54.5 Segmented Neutrophils % (Manual) 46 Band Neutrophils % (Manual) 1 Lymphocytes % 29.5 Lymphocytes % (Manual) 46 Monocytes % 10.0 Monocytes % (Manual) 4 Eosinophils % 4.3 Eosinophils % (Manual) 1 Basophils % 0.8 Basophils % (Manual) 3 H Nucleated Red Blood Cells % 0.0 Neutrophils # 4.6 Neutrophils # (Manual) 3.9 Band Neutrophils # 0.0 Absolute Lymphocytes (Manual) 3.8 H Lymphocytes # 2.5 Monocytes # 0.8 Absolute Monocytes (Manual) 0.3 Eosinophils # 0.4 Basophils # 0.1 Basophils # (Manual) 0.2 H Nucleated Red Blood Cells # 0.0 Smudge Cells % 3 H Platelet Estimate NORMAL Polychromasia 3+ Hypochromasia 2+ Poikilocytosis 2+ Anisocytosis 3+ Microcytosis 3+ Absolute Reticulocyte Count 0.121 H Percent Reticulocyte Count 2.6 H Erythrocyte Sedimentation Rate 5 Carcinoembryonic Antigen < 0.3 CA 125 Antigen 6.4 Sodium Level 142 Potassium Level 3.7 Chloride Level 107 Carbon Dioxide Level 23 Anion Gap 16 Blood Urea Nitrogen 7 Creatinine 0.65 Glucose Level 86 Calcium Level 8.0 L Lactate Dehydrogenase 412 Thyroid Stimulating Hormone (TSH) 2.150 Test 10/27/16 07:12 Lab Scanned Report BLOOD TRANSFUSION Medications Medications Current Medications Ondansetron HCl (Zofran Inj) 4 mg Q6H PRN IV NAUSEA AND/OR VOMITING; Start 10/26 at 04:30 Morphine Sulfate 3 mg 3 mg Q4H PRN IV PAIN Last administered on 10/26/16 21:57 ; Admin Dose 3 MG; Start 10/26/16 at 04:30 Cefepime HCl (Maxipime 1gm/50 ml (Pmx)) 50 ml @ 100 mls/hr Q12 IVPB Last administered on 10/27/16 08:27; Admin Dose 100 MLS/HR; Start 10/26/16 at 09:00 Acetaminophen (Tylenol Tab) 650 mg Q6H PRN PO PAIN AND OR ELEVATED TEMP Last administered on 10/26/16 12:00; Admin Dose 650 MG; Start 10/26/16 at 04:30 Cholecalciferol (Vitamin D) 5,000 unit DAILY PO Last administered on 10/27/16 08:28; Admin Dose 5,000 UNIT; Start 10/26/16 at 09:00 Montelukast Sodium (Singulair) 10 mg QHS PO Last administered on 10/26/16 21:20 ; Admin Dose 10 MG; Start 10/26/16 at 21:00 Ferrous Sulfate 325 mg 325 mg TID PO Last administered on 10/27/16t 12:58; Admin Dose 325 MG; Start 10/26/16 at 09:00 Ferric Sodium Gluconate Complex/ Sodium Chloride (Ferrlecit/NS) 110 ml @ 110 mls/hr Q24H IVPB ; Start 10/28/16 at 11:00; Stop 11/02/16 at 11:59 BARBRA ROBERTS Oct 27, 2016 14:30
--- NOTE | 2016-10-27 15:00 | CONS ---
Date/Time of Note Date/Time of Note DATE: 10/27/16 TIME: 14:47 Assessment/Plan Assessment/Plan Additional Assessment/Plan Assessment * Anemia R/O upper GI bleed vs lower GI bleed vs others Iron deficiency anemia * Flank pain Plan * EGD tomorrow risks and benefit explained to patient and agreed with the planned procedure * monitor hemoglobin and hematocrit daily and transfuse per protocol * Pantoprazole 40 mg BID * further orders will depend on clinical course Consultation Date/Type/Reason Admit Date/Time Oct 26, 2016 at 01:13 Date of Consultation: Oct 27, 2016 Type of Consultation: gastroenterology Reason for Consultation anemia Referring Provider: BARBRA ROBERTS Hx of Present Illness 36 year old female with past medical history of iron deficiency anemia and asthma presented in the emergency room complaining of bilateral flank pain.present condition started 1 week ago ,diagnosed as having UTI and given Cephalexin which afforded no relief.Patient claimed pain became worse hence consult .She denies any episode of vomiting,hematemesis,,hematochezia,but claims to be noticing dark colored stool.She has been taking iron preparation for long time.Ct scan abdomen . No CT evidence for obstructive uropathy or renal calculi. Mild retained stool within the colon without obstruction. No CT evidence for appendicitis.. Trace pelvic free fluid..Hemoglobin revealed anemia 7.5 dropped to 6.5 the following day hence blood transfusion started.Present hemoglobin is 9.0.Patient denies any evidence hematemesis, hematochezia nor abdominal pain Constitutional: other (Low back pain, suprapubic pain) Eyes: no complaints ENT: no complaints Respiratory: no complaints Cardiovascular: no complaints Gastrointestinal: no complaints Genitourinary: no complaints, other (Reports some thick vaginal discharge) Musculoskeletal: back pain Skin: other (Pale skin) Neurologic: no complaints Endocrine: no complaints Lymphatic: no complaints Psychological: nl mood/affect, no complaints Immunologic: no complaints Past Medical History Medical History: other (GERD, chronic anemia) Past Surgical History Past Surgical Hx: no surgical history Family History Significant Family History: no pertinent family hx Social History Alcohol Use: none Smoking Status: Unknown if ever smoked Drug Use: none Exam/Review of Systems Vital Signs Vitals Vital Signs Date Time Temp Pulse Resp B/P Pulse Ox O2 Delivery O2 Flow Rate FiO2 10/27/16 08:00 98.1 78 18 116/73 100 10/26/16 21:15 Room Air Intake and Output 10/26/16 10/26/16 10/27/16 15:00 23:00 07:00 Intake Total 50 ml 2500 ml 1410 ml Output Total 2000 ml 2000 ml Balance 50 ml 500 ml -590 ml Exam Constitutional: alert, oriented, well developed Psych: nl mood/affect, no complaints Head: atraumatic, normocephalic Eyes: EOMI, PERRL, nl conjunctiva, nl lids, nl sclera ENMT: nl lips & teeth, nl nasal mucosa & septum Neck: non-tender, supple Respiratory: clear to auscultation, normal air movement Cardiovascular: nl pulses, regular rate and rhythm Gastrointestinal: nl liver, spleen, non-tender, soft Musculoskeletal: nl extremities to inspection, nl gait and stance Extremities: normal pulses Neurological: nl mental status, nl speech, nl strength Skin: nl turgor, No rash or lesions Lymph: nl lymph nodes Results Result Diagram: 10/27/16 0424 10/27/16 0455 Results 24 hrs Laboratory Tests Test 10/27/16 04:24 10/27/16 04:37 10/27/16 04:53 10/27/16 04:55 White Blood Count 8.4 Red Blood Count 4.77 Hemoglobin 9.0 #L Hematocrit 31.5 #L Mean Corpuscular Volume 66.0 L Mean Corpuscular Hemoglobin 18.9 #L Mean Corpuscular Hemoglobin Concent 28.6 L Red Cell Distribution Width 30.7 #H Platelet Count 215 Mean Platelet Volume Neutrophils % 54.5 Segmented Neutrophils % (Manual) 46 Band Neutrophils % (Manual) 1 Lymphocytes % 29.5 Lymphocytes % (Manual) 46 Monocytes % 10.0 Monocytes % (Manual) 4 Eosinophils % 4.3 Eosinophils % (Manual) 1 Basophils % 0.8 Basophils % (Manual) 3 H Nucleated Red Blood Cells % 0.0 Neutrophils # 4.6 Neutrophils # (Manual) 3.9 Band Neutrophils # 0.0 Absolute Lymphocytes (Manual) 3.8 H Lymphocytes # 2.5 Monocytes # 0.8 Absolute Monocytes (Manual) 0.3 Eosinophils # 0.4 Basophils # 0.1 Basophils # (Manual) 0.2 H Nucleated Red Blood Cells # 0.0 Smudge Cells % 3 H Platelet Estimate NORMAL Polychromasia 3+ Hypochromasia 2+ Poikilocytosis 2+ Anisocytosis 3+ Microcytosis 3+ Absolute Reticulocyte Count 0.121 H Percent Reticulocyte Count 2.6 H Erythrocyte Sedimentation Rate 5 Carcinoembryonic Antigen < 0.3 CA 125 Antigen 6.4 Sodium Level 142 Potassium Level 3.7 Chloride Level 107 Carbon Dioxide Level 23 Anion Gap 16 Blood Urea Nitrogen 7 Creatinine 0.65 Glucose Level 86 Calcium Level 8.0 L Lactate Dehydrogenase 412 Thyroid Stimulating Hormone (TSH) 2.150 Test 10/27/16 07:12 Lab Scanned Report BLOOD TRANSFUSION Medications Medications Current Medications Ondansetron HCl (Zofran Inj) 4 mg Q6H PRN IV NAUSEA AND/OR VOMITING; Start 10/26 at 04:30 Morphine Sulfate 3 mg 3 mg Q4H PRN IV PAIN Last administered on 10/26/16 21:57 ; Admin Dose 3 MG; Start 10/26/16 at 04:30 Cefepime HCl (Maxipime 1gm/50 ml (Pmx)) 50 ml @ 100 mls/hr Q12 IVPB Last administered on 10/27/16 08:27; Admin Dose 100 MLS/HR; Start 10/26/16 at 09:00 Acetaminophen (Tylenol Tab) 650 mg Q6H PRN PO PAIN AND OR ELEVATED TEMP Last administered on 10/26/16 12:00; Admin Dose 650 MG; Start 10/26/16 at 04:30 Cholecalciferol (Vitamin D) 5,000 unit DAILY PO Last administered on 10/27/16 08:28; Admin Dose 5,000 UNIT; Start 10/26/16 at 09:00 Montelukast Sodium (Singulair) 10 mg QHS PO Last administered on 10/26/16 21:20 ; Admin Dose 10 MG; Start 10/26/16 at 21:00 Ferrous Sulfate 325 mg 325 mg TID PO Last administered on 10/27/16 12:58; Admin Dose 325 MG; Start 10/26/16 at 09:00 Ferric Sodium Gluconate Complex/ Sodium Chloride (Ferrlecit/NS) 110 ml @ 110 mls/hr Q24H IVPB ; Start 10/28/16 at 11:00; Stop 11/02/16 at 11:59 ROMY BARONE MD Oct 27, 2016 14:59
[2016-10-27 15:44] LABS: URIC ACID 4.1 mg/dl (3.1-7.9)
[2016-10-27 16:16] LABS: THYROID STIMULATING HORMONE 2.01 MIU/L (0.465-4.680)
[2016-10-27 16:51] LABS: FOLATE 13.8 ng/ml (2.8-20.0)
--- NOTE | 2016-10-27 17:27 | HP ---
Date/Time of Note Date/Time of Note DATE: 10/27/16 TIME: 16:48 Assessment/Plan VTE Prophylaxis VTE Prophylaxis Intervention: contraindicated Lines/Catheters Urinary Cath still in place: No HPI/ROS Admit Date/Time Admit Date/Time October 27, 2016 Hospital consult Hx of Present Illness This patient is a 36 years old 4 para 3 who came to the clinic complaining of fatigue nausea and back pain for few days. She had some workup done in the emergency room due to her anemia in reviewing her past medical history she had 3 spontaneous vaginal delivery she has a history of urinary tract infection as well as a severe anemia in fact she was placed on iron and control pill as a part of her treatment for her anemia about 8 years ago which she did not continue. Recently for the treatment of her urinary tract infection she was placed Keflex which she is stopped couple of days but are complaining of low back pain and fatigue continue she was having a low-grade fever with temperature 100.1. In reviewing her gynecological history she did not have menometrorrhagia amount of blood flow during. Was on average no intermenstrual bleeding. In an ultrasound two small fibroid nodule which were not submucosal was reported in the emergency room. On pelvic examination which was performed in emergency room the uterus was not enlarged and adnexa is were normal size Today on examination she is well-developed well-nourished -[place] lady with some degree of anemia. She already received 2 units of packed cell and is being worked up by any other causal anemia. I explained to her that although it does not appears that 2 small fibroid or her menstrual period to the source of her anemia she can start using hormone containing IUD or injection of progesterone as a means of reducing the blood flow or stopping the altogether. If the workup does not show any other reason for anemia gynecological [place] she can still have endometrial ablation on in the worse case scenario to have a hysterectomy. Laboratory Tests Test 10/27/16 04:24 10/27/16 04:37 10/27/16 04:53 10/27/16 04:55 White Blood Count 8.410^3/ul Red Blood Count 4.7710^6/ul Hemoglobin 9.0g/dl Hematocrit 31.5% Mean Corpuscular Volume 66.0fl Mean Corpuscular Hemoglobin 18.9pg Mean Corpuscular Hemoglobin Concent 28.6g/dl Red Cell Distribution Width 30.7% Platelet Count 87009^3/UL Mean Platelet Volume fl Neutrophils % 54.5% Segmented Neutrophils % (Manual) 46% Band Neutrophils % (Manual) 1% Lymphocytes % 29.5% Lymphocytes % (Manual) 46% Monocytes % 10.0% Monocytes % (Manual) 4% Eosinophils % 4.3% Eosinophils % (Manual) 1% Basophils % 0.8% Basophils % (Manual) 3% Nucleated Red Blood Cells % 0.0/100WBC Neutrophils # 4.610^3/ul Neutrophils # (Manual) 3.910^3/ul Band Neutrophils # 0.010^3/ul Absolute Lymphocytes (Manual) 3.810^3/ul Lymphocytes # 2.510^3/ul Monocytes # 0.810^3/ul Absolute Monocytes (Manual) 0.310^3/ul Eosinophils # 0.410^3/ul Basophils # 0.110^3/ul Basophils # (Manual) 0.210^3/ul Nucleated Red Blood Cells # 0.010^3/ul Smudge Cells % 3% Platelet Estimate NORMAL Polychromasia 3+ Hypochromasia 2+ Poikilocytosis 2+ Anisocytosis 3+ Microcytosis 3+ Absolute Reticulocyte Count 0.121X10^6 Percent Reticulocyte Count 2.6% Erythrocyte Sedimentation Rate 5mm/Hr Uric Acid 4.1mg/dl Carcinoembryonic Antigen < 0.3ng/ml CA 125 Antigen 6.4U/ml Vitamin B12 Level 307pg/ml Folate 13.8ng/ml Thyroid Stimulating Hormone (TSH) 2.010MIU/L 2.150MIU/L Sodium Level 142mmol/L Potassium Level 3.7mmol/L Chloride Level 107mmol/L Carbon Dioxide Level 23mmol/L Anion Gap 16 Blood Urea Nitrogen 7mg/dl Creatinine 0.65mg/dl Glucose Level 86mg/dl Calcium Level 8.0mg/dl Lactate Dehydrogenase 412IU/L Test 10/27/16 07:12 Lab Scanned Report BLOOD [id number] Current Medications Medications (Trade) Dose Ordered Sig/Jocelyn Route PRN Reason Start Time Stop Time Status Last Admin Dose Admin Sodium Chloride (NS) 1,000 ml @ 1,000 mls/hr Q1H STAT IV 10/25/16 22:55 10/25/16 23:54 DC 10/25/16 23:37 1,000 MLS/HR Morphine Sulfate (morphine) 2 mg ONCE STAT IV 10/25/16 22:55 10/25/16 22:57 DC 10/25/16 23:37 2 MG Ondansetron HCl (Zofran Inj) 4 mg ONCE STAT IV 10/25/16 22:55 10/25/16 22:57 DC 10/25/16 23:36 4 MG Acetaminophen (Tylenol Tab) 500 mg ONCE STAT PO 10/25/16 22:55 10/25/16 22:57 DC 10/25/16 23:36 500 MG Ketorolac Tromethamine (Toradol) 30 mg ONCE STAT IV 10/25/16 22:55 10/25/16 22:57 DC 10/25/16 23:36 30 MG Enoxaparin Sodium (Lovenox) 40 mg DAILY SC 10/26/16 09:00 10/26/16 09:00 DC Ondansetron HCl (Zofran Inj) 4 mg Q6H PRN IV NAUSEA AND/OR VOMITING 10/26/16 04:30 Morphine Sulfate 3 mg 3 mg Q4H PRN IV PAIN 10/26/16 04:30 10/26/16 21:57 3 MG Cefepime HCl (Maxipime 1gm/50 ml (Pmx)) 50 ml @ 100 mls/hr Q12 IVPB 10/26/16 09:00 10/27/16 08:27 100 MLS/HR Acetaminophen 650 mg 650 mg Q6H PRN PO PAIN AND OR ELEVATED TEMP 10/26/16 04:30 10/26/16 12:00 650 MG Sodium Chloride (NS) 1,000 ml @ 100 mls/hr Q10H IV 10/26/16 04:45 10/27/16 04:45 DC 10/26/16 23:33 100 MLS/HR Cholecalciferol (Vitamin D) 5,000 unit DAILY PO 10/26/16 09:00 10/27/16 08:28 5,000 UNIT Ferrous Sulfate (Ferrous Sulfate (Ec)) 325 mg DAILY PO 10/26/16 09:00 10/26/16 09:00 DC Montelukast Sodium (Singulair) 10 mg QHS PO 10/26/16 21:00 10/26/16 21:20 10 MG Ferrous Sulfate 325 mg 325 mg TID PO 10/26/16 09:00 10/27/16 12:58 325 MG Ferric Sodium Gluconate Complex/ Sodium Chloride (Ferrlecit/NS) 110 ml @ 100 mls/hr ONCE@20 IVPB 10/26/16 20:00 10/26/16 21:05 DC 10/26/16 22:01 100 MLS/HR Clotrimazole 1 applic 1 applic ONCE ONCE VAG 10/27/16 01:30 10/27/16 01:31 DC 10/27/16 02:39 1 APPLIC Ferric Sodium Gluconate Complex 125 mg/Sodium Chloride 110 ml @ 100 mls/hr ONCE ONCE IVPB 10/27/16 11:00 10/27/16 12:05 DC 10/27/16 10:57 100 MLS/HR Ferric Sodium Gluconate Complex/ Sodium Chloride (Ferrlecit/NS) 110 ml @ 110 mls/hr Q24H IVPB 10/28/16 11:00 11/02/16 11:59 ROS Constitutional: chills, diaphoresis, disoriented, fatigue, febrile, improved, nausea, no complaints, other, poor po, weight change Eyes: discharge, no complaints, other (Eyelid is pale. Thyroid gland is normal ), pain, redness, visual change ENT: bleeding, congestion, discharge, dysphagia, no complaints, other, pain, sore throat Respiratory: no complaints, other (Lungs are clear) Cardiovascular: no complaints, other (No heart murmur), No chest pain, No edema, No lightheadedness, No orthopenea, No palpitations, No paroxysmal nocturnal dyspnea Gastrointestinal: no complaints, other (No hepatomegaly or splenomegaly no CVA tenderness), No blood, No constipation, No decreased appetite, No diarrhea, No flatus, No nausea, No pain, No passing stool, No vomiting Genitourinary: no complaints, other (On pelvic exam normal size uterus and adnexa as was reported), No bleeding, No discharge, No dysuria, No flank pain, No hematuria Musculoskeletal: back pain, No bone/joint pain, No neck pain, No no complaints, No other, No restricted range of motion, No swelling Skin: other (Pale skin), No bruising, No erythema, No laceration, No no complaints, No pruritis, No rash, No skin lesions Neurologic: no complaints, No confusion, No dizziness, No focal-weakness, No headache, No other, No seizure, No syncope Lymphatic: no complaints Psychological: nl mood/affect, no complaints Immunologic: no complaints Additional Comments Her workup will continue by internal medicine till hopefully come up with an explanation for her chronic anemia PMH/Family/Social Past Medical History Medical History: other (GERD, chronic anemia) Social History Alcohol Use: none Smoking Status: Unknown if ever smoked Drug Use: none Exam/Review of Systems Vital Signs Vitals Vital Signs Intake and Output Labs Result Diagram: 10/27/16 0424 10/27/16 0455 Medications Medications Current Medications Ondansetron HCl (Zofran Inj) 4 mg Q6H PRN IV NAUSEA AND/OR VOMITING; Start 10/26 at 04:30 Morphine Sulfate 3 mg 3 mg Q4H PRN IV PAIN Last administered on 10/26/16 21:57 ; Admin Dose 3 MG; Start 10/26/16 at 04:30 Cefepime HCl (Maxipime 1gm/50 ml (Pmx)) 50 ml @ 100 mls/hr Q12 IVPB Last administered on 10/27/16 08:27; Admin Dose 100 MLS/HR; Start 10/26/16 at 09:00 Acetaminophen (Tylenol Tab) 650 mg Q6H PRN PO PAIN AND OR ELEVATED TEMP Last administered on 10/26/16 12:00; Admin Dose 650 MG; Start 10/26/16 at 04:30 Cholecalciferol (Vitamin D) 5,000 unit DAILY PO Last administered on 10/27/16 08:28; Admin Dose 5,000 UNIT; Start 10/26/16 at 09:00 Montelukast Sodium (Singulair) 10 mg QHS PO Last administered on 10/26/16 21:20 ; Admin Dose 10 MG; Start 10/26/16 at 21:00 Ferrous Sulfate 325 mg 325 mg TID PO Last administered on 10/27/16 12:58; Admin Dose 325 MG; Start 10/26/16 at 09:00 Ferric Sodium Gluconate Complex/ Sodium Chloride (Ferrlecit/NS) 110 ml @ 110 mls/hr Q24H IVPB ; Start 10/28/16 at 11:00; Stop 11/02/16 at 11:59 SAGE STAPLES MD Oct 27, 2016 17:10
[2016-10-27 20:14] VITALS: BP 122/78; RESP 18
[2016-10-27] MEDS: MONTELUKAST 10 MG TAB PO SCH (21:18)
[2016-10-27] MEDS ORDERED: AL HYDROX/MG HYDROX/SIMETH 30 ML CUP PO PRN (22:00)
[2016-10-28] VITALS (12 sets, daily range): BP systolic 111–155; BP diastolic 56–92; PULSE 66–82; RESP 16–25
[2016-10-28 05:53] LABS: ABNORMAL IP MESSAGE 1; BASOPHIL # 0.1 10^3/ul (0.0-0.1); BASOPHILS % 0.8 % (0.0-2.0); EOSINOPHILS # 0.4 10^3/ul (0.0-0.5); EOSINOPHILS % 3.6 % (0.0-7.0); HEMATOCRIT 35.7 % (37.0-47.0); HEMOGLOBIN 10.1 g/dl (12.0-16.0); LYMPHOCYTES % 26.1 % (15.0-51.0); MEAN CORPUSCULAR HEMOGLOBIN 18.8 pg (29.0-33.0); MEAN CORPUSCULAR HGB CONC 28.3 g/dl (32.0-37.0); MEAN CORPUSCULAR VOLUME 66.5 fl (82.0-101.0); MONOCYTE # 1.1 10^3/ul (0.3-0.9); MONOCYTES % 9.3 % (0.0-11.0); NEUTROPHIL # 6.9 10^3/ul (1.6-7.5); NEUTROPHILS % 59.5 % (39.0-77.0); PLATELET COUNT 235 10^3/UL (140-415); RED BLOOD COUNT 5.37 10^6/ul (4.20-5.40); RED CELL DISTRIBUTION WIDTH 32.3 % (11.5-14.5); WHITE BLOOD COUNT 11.6 10^3/ul (4.8-10.8)
[2016-10-28 06:34] LABS: CALCIUM 9.1 mg/dl (8.4-10.2); CREATININE 0.68 mg/dl (0.44-1.00); POTASSIUM 3.8 mmol/L (3.5-5.1)
[2016-10-28 06:45] LABS: POSITIVE DIFF @See below
[2016-10-28] MEDS: CHOLECALCIFEROL 1,000 UNIT TAB PO SCH (09:33)
[2016-10-28] MEDS: CEFEPIME 1GM/50 ML (PMX) 50 ML IVPB SCH (09:33)
[2016-10-28] MEDS: FERROUS SULFATE (EC) 325 MG TAB PO SCH ×3 (09:33→20:55)
[2016-10-28] MEDS: SOD FERRIC GLUC COMPLX 125 MG in SOD CHLORIDE 0.9% 100 ML IVPB SCH (11:47)
--- NOTE | 2016-10-28 15:29 | CONS ---
Date/Time of Note Date/Time of Note DATE: 10/28/16 TIME: 15:27 Assessment/Plan Assessment/Plan Chief Complaint/Hosp Course Microcytic anemia with increased RDW in Patient with history of iron deficiency anemia her hemoglobin further dropped to 6.5 from 7.6 on admission. POST PRBC X 2 U pelvic/vaginal ultrasound - Heterogeneous appearance of the uterus with multiple fibroids. The largest is in the posterior body measuring 3.0 x 2.4 x 3.0 cm. ferritin/iron. - VERY LOW START IV IRON COMPLETE ANEMIA W-UP MONITOR BLOOD COUNT CLOSELY PRBC NEEDED OBSERVE FOR BLEEDING AND HEMOLYSIS OBGYN EVAL R/O GIB- GI EVAL- R/O upper GI bleed vs lower GI bleed vs others Leukocytosis: Likely secondary to pyelonephritis but too high. with smudge cells will check flow likely pyelonephritis Patient presenting flank pain and recently diagnosed a UTI is highly suggestive of pyelonephritis. Her urinalysis however only shows 1+ leukocyte esterase with normal WBC and a CT scan is nondiagnostic for pyelonephritis. She will however be placed on IV antibiotic. Will follow up on urine culture results. Will provide pain medication as needed. History of asthma: No sign of acute exacerbation Problems: Consultation Date/Type/Reason Admit Date/Time Oct 26, 2016 at 01:13 Initial Consult Date 10/27/16 Type of Consultation: [facility] Referring Provider: BARBRA ROBERTS 24 HR Interval Summary Free Text/Dictation all noted no bleeding w-up in progress Exam/Review of Systems Vital Signs Vitals Vital Signs Date Time Temp Pulse Resp B/P Pulse Ox O2 Delivery O2 Flow Rate FiO2 10/28/16 14:00 98.0 87 18 118/68 100 10/26/16 21:15 Room Air Intake and Output 10/27/16 10/27/16 10/28/16 15:00 23:00 07:00 Intake Total 160 ml 2200 ml 1650 ml Output Total 1900 ml Balance 160 ml 2200 ml -250 ml Exam Constitutional: alert, oriented, well developed Psych: nl mood/affect, no complaints Head: atraumatic, normocephalic Eyes: EOMI, PERRL, nl conjunctiva, nl lids, nl sclera ENMT: nl lips & teeth, nl nasal mucosa & septum Neck: non-tender, supple Respiratory: clear to auscultation, normal air movement Cardiovascular: nl pulses, regular rate and rhythm Gastrointestinal: nl liver, spleen, non-tender, soft Musculoskeletal: nl extremities to inspection, nl gait and stance Extremities: normal pulses Neurological: nl mental status, nl speech, nl strength Skin: nl turgor, No rash or lesions Lymph: nl lymph nodes Results Result Diagram: 10/28/168 10/28/16 0448 Results 24 hrs Laboratory Tests Test 10/27/16 23:00 10/28/16 04:48 Stool Occult Blood NEGATIVE White Blood Count 11.6 #H Red Blood Count 5.37 Hemoglobin 10.1 L Hematocrit 35.7 L Mean Corpuscular Volume 66.5 L Mean Corpuscular Hemoglobin 18.8 L Mean Corpuscular Hemoglobin Concent 28.3 L Red Cell Distribution Width 32.3 H Platelet Count 235 Mean Platelet Volume Neutrophils % 59.5 Lymphocytes % 26.1 Monocytes % 9.3 Eosinophils % 3.6 Basophils % 0.8 Nucleated Red Blood Cells % 0.0 Neutrophils # 6.9 Lymphocytes # 3.0 H Monocytes # 1.1 H Eosinophils # 0.4 Basophils # 0.1 Nucleated Red Blood Cells # 0.0 Sodium Level 144 Potassium Level 3.8 Chloride Level 103 Carbon Dioxide Level 24 Anion Gap 21 H Blood Urea Nitrogen 8 Creatinine 0.68 Glucose Level 87 Calcium Level 9.1 Medications Medications Current Medications Ondansetron HCl (Zofran Inj) 4 mg Q6H PRN IV NAUSEA AND/OR VOMITING; Start 10/26 at 04:30 Morphine Sulfate (morphine) 3 mg Q4H PRN IV PAIN Last administered on 10/26/16 21:57; Admin Dose 3 MG; Start 10/26/16 at 04:30 Acetaminophen (Tylenol Tab) 650 mg Q6H PRN PO PAIN AND OR ELEVATED TEMP Last administered on 10/26/16 12:00; Admin Dose 650 MG; Start 10/26/16 at 04:30 Cholecalciferol (Vitamin D) 5,000 unit DAILY PO Last administered on 10/28/16 09:33; Admin Dose 5,000 UNIT; Start 10/26/16 at 09:00 Montelukast Sodium (Singulair) 10 mg QHS PO Last administered on 10/27/16 21:18 ; Admin Dose 10 MG; Start 10/26/16 at 21:00 Ferrous Sulfate 325 mg 325 mg TID PO Last administered on 10/28/16 09:33; Admin Dose 325 MG; Start 10/26/16 at 09:00 Ferric Sodium Gluconate Complex/ Sodium Chloride (Ferrlecit/NS) 110 ml @ 110 mls/hr Q24H IVPB Last administered on 10/28/16 11:47; Admin Dose 110 MLS/HR; Start 10/28/16 at 11:00; Stop 11/02/16 at 11:59 Al Hydrox/Mg Hydrox/Simethicone (Mag-Al Plus) 30 ml Q4H PRN PO GASTROINTESTINAL UPSET Last administered on 10/27/16 22:36; Admin Dose 30 ML; Start 10/27/16 at 22:00 Pantoprazole (Protonix Iv) 40 mg DAILY@06 IV ; Start 10/28/16 at 18:00; Stop 10/30 at 18:00 ANDREAS LEWIS MD Oct 28, 2016 15:29
--- NOTE | 2016-10-28 17:53 | PN ---
Date/Time of Note Date/Time of Note DATE: 10/28/16 TIME: 17:51 Assessment/Plan VTE Prophylaxis VTE Prophylaxis Intervention: SCD's Lines/Catheters IV Catheter Type (from [facility]): [facility] Urinary Cath still in place: No Assessment/Plan Chief Complaint/Hosp Course 1. Microcytic anemia 2/2 Iron deficiency -Anemia w/u, Data Scientist consult appreciated plan is for EGD today, no reported Hx of sig vaginal bleed, Hem consult appreciated anemia workup is pending -s/p 2 units of PRBC's,cont Ferrlecit 2. Flank pain- no e/p of Pyelo, likely MS in nature-resolved -UA ans UCx neg, DC Abx -CT Abd/pelvis shows no sig findings 3. Leukocytosis-resolved PPX: SCD's Problems: Subjective 24 Hr Interval Summary Constitutional: no complaints Exam/Review of Systems Vital Signs Vitals Vital Signs Date Time Temp Pulse Resp B/P Pulse Ox O2 Delivery O2 Flow Rate FiO2 10/28/16 17:22 Nasal Cannula 10/28/16 14:00 98.0 87 18 118/68 100 Intake and Output 10/27/16 10/27/16 10/28/16 15:00 23:00 07:00 Intake Total 160 ml 2200 ml 1650 ml Output Total 1900 ml Balance 160 ml 2200 ml -250 ml Exam Constitutional: alert, oriented Respiratory: clear to auscultation Cardiovascular: regular rate and rhythm Gastrointestinal: soft, No distended Musculoskeletal: nl extremities to inspection Results Result Diagram: 10/28/16 0448 10/28/16 0448 Results 24 hrs Laboratory Tests Test 10/27/16 23:00 10/28/16 04:48 Stool Occult Blood NEGATIVE White Blood Count 11.6 #H Red Blood Count 5.37 Hemoglobin 10.1 L Hematocrit 35.7 L Mean Corpuscular Volume 66.5 L Mean Corpuscular Hemoglobin 18.8 L Mean Corpuscular Hemoglobin Concent 28.3 L Red Cell Distribution Width 32.3 H Platelet Count 235 Mean Platelet Volume Neutrophils % 59.5 Lymphocytes % 26.1 Monocytes % 9.3 Eosinophils % 3.6 Basophils % 0.8 Nucleated Red Blood Cells % 0.0 Neutrophils # 6.9 Lymphocytes # 3.0 H Monocytes # 1.1 H Eosinophils # 0.4 Basophils # 0.1 Nucleated Red Blood Cells # 0.0 Sodium Level 144 Potassium Level 3.8 Chloride Level 103 Carbon Dioxide Level 24 Anion Gap 21 H Blood Urea Nitrogen 8 Creatinine 0.68 Glucose Level 87 Calcium Level 9.1 Medications Medications Current Medications Ondansetron HCl (Zofran Inj) 4 mg Q6H PRN IV NAUSEA AND/OR VOMITING; Start 10/26 at 04:30 Morphine Sulfate (morphine) 3 mg Q4H PRN IV PAIN Last administered on 10/26/16 21:57; Admin Dose 3 MG; Start 10/26/16 at 04:30 Acetaminophen (Tylenol Tab) 650 mg Q6H PRN PO PAIN AND OR ELEVATED TEMP Last administered on 10/26/16 12:00; Admin Dose 650 MG; Start 10/26/16 at 04:30 Cholecalciferol (Vitamin D) 5,000 unit DAILY PO Last administered on 10/28/16 09:33; Admin Dose 5,000 UNIT; Start 10/26/16 at 09:00 Montelukast Sodium (Singulair) 10 mg QHS PO Last administered on 10/27/16 21:18 ; Admin Dose 10 MG; Start 10/26/16 at 21:00 Ferrous Sulfate 325 mg 325 mg TID PO Last administered on 10/28/16 09:33; Admin Dose 325 MG; Start 10/26/16 at 09:00 Ferric Sodium Gluconate Complex/ Sodium Chloride (Ferrlecit/NS) 110 ml @ 110 mls/hr Q24H IVPB Last administered on 10/28/16 11:47; Admin Dose 110 MLS/HR; Start 10/28/16 at 11:00; Stop 11/02/16 at 11:59 Al Hydrox/Mg Hydrox/Simethicone (Mag-Al Plus) 30 ml Q4H PRN PO GASTROINTESTINAL UPSET Last administered on 10/27/16 22:36; Admin Dose 30 ML; Start 10/27/16 at 22:00 Pantoprazole (Protonix Iv) 40 mg DAILY@06 IV ; Start 10/28/16 at 18:00; Stop 10/30 at 18:00 BARBRA ROBERTS Oct 28, 2016 17:53
[2016-10-28] MEDS: PANTOPRAZOLE 40 MG INJ IV SCH (18:00)
[2016-10-28] MEDS ORDERED: LIDOCAINE 2% (SDV) 5 ML INJ ONE (18:46)
[2016-10-28] MEDS ORDERED: PROPOFOL 40 ML ONE (18:46)
--- NOTE | 2016-10-28 18:59 | OPR ---
Date/Time of Note Date/Time of Note DATE: 10/28/16 TIME: 18:56 Operative Report Preoperative Diagnosis Anemia Postoperative Diagnosis Impression: * Moderate distal esophagitis * Moderate erosive gastritis. Biopsies obtained. Rule out H. pylori infection * Normal duodenum Plan: * PPI therapy i.e. pantoprazole 40 mg daily * Review pathology * Consider colonoscopy if stool OB positive persist. Inpatient or outpatient . Operation/Procedure Performed EGD with biopsies Surgeon: ROMY BARONE MD Anesthesia: MAC Estimated Blood Loss: minimal Specimens Gastric body and antrum Grafts/Implants None Complications: None ROMY BARONE MD Oct 28, 2016 18:59
[2016-10-28] MEDS: MONTELUKAST 10 MG TAB PO SCH (20:55)
[2016-10-29 02:20] VITALS: BP 130/78; RESP 18
[2016-10-29 05:41] LABS: ABNORMAL IP MESSAGE 1; BASOPHIL # 0.1 10^3/ul (0.0-0.1); BASOPHILS % 0.8 % (0.0-2.0); EOSINOPHILS # 0.5 10^3/ul (0.0-0.5); EOSINOPHILS % 4.1 % (0.0-7.0); HEMATOCRIT 36.2 % (37.0-47.0); HEMOGLOBIN 10.3 g/dl (12.0-16.0); LYMPHOCYTES # 2.4 10^3/ul (0.8-2.9); MEAN CORPUSCULAR HGB CONC 28.5 g/dl (32.0-37.0); MEAN CORPUSCULAR VOLUME 66.9 fl (82.0-101.0); MONOCYTE # 1.1 10^3/ul (0.3-0.9); MONOCYTES % 9.5 % (0.0-11.0); NEUTROPHIL # 7.7 10^3/ul (1.6-7.5); NEUTROPHILS % 65.2 % (39.0-77.0); PLATELET COUNT 229 10^3/UL (140-415); RED BLOOD COUNT 5.41 10^6/ul (4.20-5.40); RED CELL DISTRIBUTION WIDTH 32.9 % (11.5-14.5); WHITE BLOOD COUNT 11.7 10^3/ul (4.8-10.8)
[2016-10-29 05:49] LABS: POSITIVE DIFF @See below
[2016-10-29] MEDS: PANTOPRAZOLE 40 MG INJ IV SCH (05:50)
[2016-10-29 06:00] LABS: CREATININE 0.67 mg/dl (0.44-1.00); POTASSIUM 4.1 mmol/L (3.5-5.1)
[2016-10-29 07:52] VITALS: BP 117/77; RESP 18
[2016-10-29] MEDS: FERROUS SULFATE (EC) 325 MG TAB PO SCH ×2 (08:17→12:01)
[2016-10-29] MEDS: CHOLECALCIFEROL 1,000 UNIT TAB PO SCH (08:17)
[2016-10-29] MEDS ORDERED: PANT40TA3 PO (09:22)
[2016-10-29] MEDS ORDERED: FER325 PO (09:22)
[2016-10-29] MEDS ORDERED: ASC500 PO (09:22)
--- NOTE | 2016-10-29 09:23 | PDOCDIS ---
Discharge Instructions CONDITION Patient Condition: Good HOME CARE INSTRUCTIONS: Diet Instructions: Regular ACTIVITY: Activity Restrictions: No Restrictions FOLLOW UP/APPOINTMENTS Follow-up Plan F/U WITH YOUR PCP IN 1-2 WEEKS BARBRA ROBERTS Oct 29, 2016 09:23
[2016-10-29] MEDS: SOD FERRIC GLUC COMPLX 125 MG in SOD CHLORIDE 0.9% 100 ML IVPB SCH (10:35)
--- NOTE | 2016-10-29 12:38 | DS ---
Date/Time of Note Date/Time of Note DATE: 10/29/16 TIME: 12:32 Discharge Summary Admission/Discharge Info Admit Date/Time Oct 26, 2016 at 01:13 Discharge Date/Time October 29, 2016 Discharge Diagnosis 1. Microcytic anemia 2/2 Iron deficiency -Source of iron deficiency may be secondary to poor p.o. intake or absorption issues, patient had no evidence of GI bleed or excessive vaginal bleeding -Follow with hematology -Status post Ferrlecit IV, DC with p.o. iron -s/p 2 units of PRBC's 2. Flank pain- no e/p of Pyelo, likely MS in nature-resolved -UA ans UCx neg -CT Abd/pelvis shows no sig findings 3. Leukocytosis-resolved Patient Condition: Good Hospital Course Patient is a 36-year-old female with a history of asthma and iron deficiency anemia who presented to the emergency department complaining of bilateral flank pain. About a week ago she was diagnosed with UTI and had been prescribed cephalexin. She said after she started taking the antibiotic the pain actually has gotten much worse. She also reported subjective fever and nausea but no vomiting. The ER UA showed no evidence of UTI and urine culture was negative. Patient CT abdomen and pelvis that showed no significant findings. Patient was noted to have severe iron deficiency anemia, she was seen by both gynecology and GI. Patient had no reports of any excess vaginal bleeding and gynecology do not believe that this was related to a gynecological issue. Patient did have an EGD with GI that did show moderate gastritis but stool occult blood sample was negative and was felt that her anemia is also not GI related. Patient was seen by hematology and anemia workup was done. Patient had a normal LDH and haptoglobin reticulocyte count was only mildly elevated. Patient appears to have decrease in dietary iron versus issues with iron absorption. Patient was given Ferrlecit IV so that she needs follow-up with hematology. Of note patient's flank pain that she presented with did resolve. Patient said that she was stable for discharge she had no further acute complaints and on day of discharge patient's vitals, labs and physical exam are stable. Questions were answered. Home Meds Active Scripts Pantoprazole* (Protonix*) 40 Mg Tablet.dr, 40 MG PO DAILY for 30 Days, TAB Prov:ARMANDOBARBRA 10/29/16 Ascorbic Acid (Vitamin C) 500 Mg Tab, 500 MG PO BID, #60 TAB 1 Refill Prov:BARBRA ROBERTS 10/29/16 Ferrous Sulfate* (Ferrous Sulfate*) 325 Mg Tabec, 325 MG PO BID, #60 TAB 1 Refill Prov:BARBRA ROBERTS 10/29/16 Reported Medications Ferrous Sulfate* (Ferrous Sulfate*) 325 Mg Tabec, 325 MG PO DAILY, TAB 10/26/16 Cholecalciferol* (Vitamin D3*) 1,000 Unit Tablet, 5000 UNIT PO DAILY, TAB 10/26/16 Montelukast Sodium* (Montelukast Sodium*) 10 Mg Tablet, 10 MG PO QHS, #30 TAB 10/26/16 Discontinued Reported Medications Cephalexin* (Cephalexin*) 500 Mg Capsule, 500 MG PO Q12 for 7 Days, #28 CAP 10/26/16 Omeprazole* (Omeprazole*) 20 Mg Capsule.dr, 20 MG PO BID, #60 CAP 10/26/16 [none] Unknown Strength No Conflict Check 10/25/16 Follow-up Plan Follow-up with PCP in 1-2 weeks and with hematology Primary Care Provider Not On Staff Doctor Time spent on discharge: > 30 minutes BARBRA ROBERTS Oct 29, 2016 12:38
--- NOTE | 2016-11-01 08:45 | GILP ---
DATE OF PROCEDURE: 10/28/2016 PROCEDURE: Esophagogastroduodenoscopy with biopsies. BRIEF HISTORY AND INDICATIONS: The patient is being evaluated for anemia. PREMEDICATION: Monitored anesthesia care by anesthesiologist. INSTRUMENT USED: Olympus endoscope. TECHNIQUE: After informed consent, with the patient/relatives understanding the procedure, its indications, potential risks and complications, including but not limited to: allergic reaction, bleeding, perforation or infection, and after all pertinent questions were answered to the patients satisfaction, the patient/relatives signed witnessed informed consent. Following this, premedication was administered slowly IV push under careful cardiovascular and respiratory monitoring with pulse oximetry, automatic blood pressure and director of media. Once the sedative effect was achieved the patient was place in the left lateral decubitus, the panendoscope was introduced and advanced under visual control. Careful examination of the upper gastrointestinal tract, both on insertion as well as withdrawal of the instrument disclosed the following findings: ESOPHAGUS: The distal esophagus showed moderate erythema and edema of the mucosa in the area of the EG junction. STOMACH: Upon entrance to the stomach air was insufflated, the gastric lowe distended normally. There was erythema, edema, and erosions in the body and antrum of the stomach. Biopsies were obtained to rule out H. pylori infection. PYLORUS: The pylorus appears patent and within normal limits, with no evidence of gastric outlet obstruction. DUODENUM: The duodenal mucosa was carefully examined in the duodenal bulb as well as the second portion of the duodenum and appears unremarkable with no evidence of duodenitis, ulcer or neoplasm. The instrument was then withdrawn, the patient tolerated the procedure well and was transfer out of the endoscopy suite awake, and in good condition to continue recovery under observation. IMPRESSION: 1. Moderate distal esophagitis. 2. Moderate erosive gastritis, biopsies obtained to rule out H. pylori infection. RECOMMENDATIONS: The patient will be treated with proton pump inhibitors, pantoprazole 40 mg daily. Review pathology. The patient should remain under observation and if evidence of further bleeding if identified, colonoscopy should be considered as an outpatient. Dictated By: Mariposa Segovia MD /[email or web address]/[email or web address] /Document#: [id number]
== END 2016-10-29 12:48 | disposition home or self-care (01) | DRG 812 ==
LOC: FTE 22:15 → MS1 10-26 01:13
PROVIDERS: ADMIT Internal Medicine; ATTEND Internal Medicine
PROC: 0DB68ZX Excision of Stomach, Via Natural or Artificial Opening Endoscopic, Diagnostic (ICD-10-PCS; principal; 2016-10-26)
PROC: 30233N1 Transfusion of Nonautologous Red Blood Cells into Peripheral Vein, Percutaneous Approach (ICD-10-PCS; 2016-10-26)
DX: D50.9 Iron deficiency anemia, unspecified (principal); N12 Tubulo-interstitial nephritis, not specified as acute or chronic; D25.9 Leiomyoma of uterus, unspecified; D72.829 Elevated white blood cell count, unspecified; J45.909 Unspecified asthma, uncomplicated; N83.8 Other noninflammatory disorders of ovary, fallopian tube and broad ligament; K20.8 Other esophagitis; K29.60 Other gastritis without bleeding; Z87.440 Personal history of urinary (tract) infections
CPT/HCPCS: 36430; 74176; 76830; 76856; 80048; 80053; 81001; 82270; 82306; 82378; 82607; 82728; 82746; 83010; 83540; 83615; 83690; 83735; 84100; 84443; 84560; 85025; 85045; 85651; 86304; 86850; 86900; 86901; 86920; 87081; 87086; 87220; 88305; 88312; C9113; J0692; J1885; J2270; J2405; J2916; J7030; P9016

== ENCOUNTER 2017-02-17 14:58 | Emergency (ER) | payer BC ==
[~2017-02-17] VITALS: Wt 61.3 kg
[~2017-02-17 14:58] MED LIST: ASC500 PO; CHOL100062 PO; FER325 PO; MONT10TA24 PO; PANT40TA3 PO
--- NOTE | 2017-02-17 17:52 | ERD ---
ER Documentation Chief Complaint Chief Complaint NAUSEA, DIZZINESS, ONSET 1 WEEK HPI This pt present to ED for evaluation of burning eyes , and tingeling hands and feet with weakness, pt was seen by PMD 4 days ago and started Cipro, for a UTI , and ferrous sulfate for anemia, and lorazepam for anxiety. ROS All systems reviewed and are negative except as per history of present illness. Medications Home Meds Active Scripts Carboxymethylcellulose Sodium (Lubricant Eye Drops) 1 Each Droperette, 1 EACH OP BID for 7 Days Prov:STEVENJODY 02/17/17 Pantoprazole* (Protonix*) 40 Mg Tablet.dr, 40 MG PO DAILY for 30 Days, TAB Prov:BARBRA ROBERTS 10/29/16 Ascorbic Acid (Vitamin C) 500 Mg Tab, 500 MG PO BID, #60 TAB 1 Refill Prov:BARBRA ROBERTS 10/29/16 Ferrous Sulfate* (Ferrous Sulfate*) 325 Mg Tabec, 325 MG PO BID, #60 TAB 1 Refill Prov:BARBRA ROBERTS 10/29/16 Reported Medications Ferrous Sulfate* (Ferrous Sulfate*) 325 Mg Tabec, 325 MG PO DAILY, TAB 10/26/16 Cholecalciferol* (Vitamin D3*) 1,000 Unit Tablet, 5000 UNIT PO DAILY, TAB 10/26/16 Montelukast Sodium* (Montelukast Sodium*) 10 Mg Tablet, 10 MG PO QHS, #30 TAB 10/26/16 Allergies Allergies: Coded Allergies: No Known Allergy (Unverified , 02/17/17) PMhx/Soc History of Surgery: No Anesthesia Reaction: No Hx Neurological Disorder: No Hx Respiratory Disorders: No Hx Cardiac Disorders: No Hx Psychiatric Problems: No Hx Miscellaneous Medical Probl: No Hx Alcohol Use: No Hx Substance Use: No Hx Tobacco Use: No Physical Exam Vitals Vital Signs Date Time Temp Pulse Resp B/P Pulse Ox O2 Delivery O2 Flow Rate FiO2 02/17/17 15:01 98.1 91 18 143/89 100 Vitals stable, triage notes reviewed Physical Exam Const: Well-nourished well-appearing well-hydrated 36-year-old female in no acute distress Head: Eyes: ENT: Normal External Ears, Nose and Mouth. Neck: Full range of motion..~ No meningismus. Resp: Clear to auscultation bilaterally Cardio: Regular rate and rhythm, no murmurs Abd: Skin: No petechiae or rashes Back: Ext: Hand - bilateral: Skin: No laceration, or evidence of external trauma Compartments: Soft Sensation: Intact shoulder/pinky/middle finger/thumb web space Bones: Nontender Snuffbox: Nontender Joints: No effusion Finger: Flex/Ext: Normal Add/abd: Normal Neur: Awake and alert Psych: Normal Mood and Affect Procedures/MDM This 36-year-old female presents to emergency department for reevaluation of chronic conditions. Patient reports numbness and tingling in her hands and feet , fatigue, and burning eyes. Patient has been seen 4-6 days ago by primary physician, she is on Cipro for a urinary tract infection, she is on vitamin replacement including ferrous sulfate, vitamin D, and vitamin D for suspected anemia, and lorazepam for anxiety/sleep. Patient denies any change in vision or blurry vision, teaching provided that she would need to follow-up with her primary care physician in continue on current plan for anemia treatment and vitamin replacement. That as her body increases its her iron storage and vitamin B she will feel less tired, numbness and tingling should subside. She was instructed to use the Lorazepam for anxiety and sleep. Plan to prescribe patient some moisturizing eyedrops for the eye burning. Follow-up with primary care physician as he directed several days ago. Return to emergency room for emergent symptoms of chest pain, shortness of breath, syncope. Patient is stable with no new complaints during ER course, clinically there is no current evidence to suggest meningitis, iritis, include angle glaucoma, sepsis, acute abdomen, acute coronary syndromes, pulmonary embolism or any other emergent condition appearing to require further evaluation or hospitalization. I feel the patient is stable for discharge at this time. I have discussed results, examination findings, the treatment plan with the patient and family present prior to discharge. Indications for emergent reevaluation, side effects of medication were also discussed. All questions were answered. Patient verbalizes understanding and agrees with plan of care. Departure Diagnosis: Primary Impression: Dry eyes Additional Impression: History of anemia Condition: Good Patient Instructions: Anemia, Anemia, Iron Deficiency (Adult), What Are Dry Eyes? Additional Instructions: Thank you for for coming to [facility] for your care today. Please ask your nurse or provider if you have questions about your care today and do not leave until all your questions have been answered. Please use any medications given as directed and follow-up with your doctor (or the doctor you were referred to) in the next 2-3 days. If you do not have a primary care doctor you may follow up at the [facility] (listed below). You may also use motrin and tylenol as needed for fever and/or pain unless instructed otherwise by your provider or nurse. Indications for more urgent follow-up have been discussed, but you may return to the Emergency Department at ANY time for any worrisome or worsening symptoms. If you have abdominal pain, please know that no test or exam you received is perfect and you should follow up within 8 hours for continued pain. If you had any imaging studies today, such as an X-Ray or CT Scan, these studies will be reviewed later by a radiologist. You will be called if there are important findings that were not identified today, so make sure the contact information you provided at registration is correct. If you received any narcotic pain control medicine today, such as Vicodin, Morphine or Dilaudid, your coordination and judgment may be affected for a number of hours. Please do not drive or operate heavy machinery, and you may want someone to assist you at home. If you were given a prescription for narcotic medication, be aware that it is very addictive- use sparingly and only if necessary. JODY HARRIS Feb 17, 2017 17:52
[2017-02-17] MEDS ORDERED: CARB1DRO7 OP (18:15)
[2017-02-17 18:50] VITALS: BP 130/82; PULSE 76; RESP 20; TEMP 98.4
== END 2017-02-17 18:51 | disposition home or self-care (01) ==
LOC: FTE 14:58
DX: H57.8 Other specified disorders of eye and adnexa (principal); Z86.2 Personal history of diseases of the blood and blood-forming organs and certain disorders involving the immune mechanism
CPT/HCPCS: 99283